=== PATIENT | female | born 1960 | race Caucasian/White ===

== ENCOUNTER 2017-12-09 15:20 | Emergency (ER) | payer MEDICARE, MEDICAID, SELFPAY ==
[2017-12-09 15:21] VITALS: BP 144/95; PULSE 75; RESP 14; TEMP 36.8; O2SAT 97; BMI 39.9
--- NOTE | 2017-12-09 15:44 | EKG12_ITS ---
Test Reason : HYPERTENSION Blood Pressure : / mmHG Vent. Rate : 069 BPM Atrial Rate : 069 BPM P-R Int : 152 ms QRS Dur : 082 ms QT Int : 418 ms P-R-T Axes : 038 -02 019 degrees QTc Int : 447 ms Poor data quality, interpretation may be adversely affected Normal sinus rhythm Normal ECG Confirmed by BARBIE YBARRA, PRICILLA ([id number]), acquisition editor MARK BRANHAM ([id number] on 12/11/2017 1:01:24 PM Referred By: MUKESH Confirmed By:PRICILLA VALENTIN MD
[2017-12-09 16:25] LABS: Anion Gap 7 (5-15); BUN 12 mg/dL (7-18); BUN/Creat Ratio 15.2 RATIO (10-20); Calcium,Total 8.9 mg/dL (8.5-10.1); Chloride 106 mmol/L (98-107); Creatinine, Serum 0.79 mg/dL (0.55-1.02); EST Glomerular Filtration Rate 80 mL/min (>60); Est Glom Filt Rate - Afr Amer 97 mL/min (>60); Estimated Creatinine Clearance 60.72 ml/min; Glucose 78 mg/dL (74-106); Potassium 3.9 mmol/L (3.5-5.1); Sodium Level 139 mmol/L (136-145)
[2017-12-09 16:35] VITALS: BP 156/105; PULSE 71; RESP 16
--- NOTE | 2017-12-09 16:44 | ED.VISSUMM ---
- ER Visit Summary Date of Service: 12/09/17 Chief Complaint: [Hypertension] History of Present Illness: The patient is a 57 F [the emergency department with elevated blood pressure. She states him is been going on for the last [address] Kaiser 2 months ago and it was elevated she has been doing diet modification however she states he continues to run high. She has had intermittent headaches. No vision changes no numbness no weakness no dizziness. No chest pain no shortness of breath. She has been urinating normally. She went to the counseling center appointment today and her blood pressure was 177/111 and they referred her to the emergency department. She has had blood pressure intermittently over the last 4 years but is never taken any medication for it] Physical Examination: [] Blood pressure 144/95 WN WD NAD obese PERRL EOMI MMM NECK supple and nontender, no masses RRR no murmur rub or gallop, no peripheral edema, symmetric radial pulses CTAB no respiratory distress ABDOMEN is soft and nontender, normal bowel sounds, no distension, no rebound or guarding SKIN is warm and dry no rashes Alert and Oriented x3, CN II-XII in tact, no motor or sensory deficits, gait normal No lymphadenopathy Test Results: [] Emergency Department Course and Treatment: [EKG was unremarkable. BMP was normal. Repeat blood pressure is 156/105. Patient will be started on lisinopril. She was given precautions for which to return and will follow up with Dr. Kaiser in the next week.] Treatment Plan: [] Disposition: [Discharge] Impression: [Asymptomatic hypertension] This note was generated with [employer] dictation software. It may contain incorrect words, spelling, and punctuation that were not noted in review of the chart prior to signing ED Disposition - Plan for ED Patient: Chief Complaint: Hypertension Referrals: Jennifer Kaiser MD [Primary Care Provider] -
--- NOTE | 2017-12-09 16:46 | ED.DEP ---
ED Disposition - Plan for ED Patient: Chief Complaint: Hypertension Instructions: ED Hypertension New Begin Tx Prescriptions: Lisinopril [Zestril] 10 mg PO DAILY #14 tablet Referrals: Jennifer Kaiser MD [Primary Care Provider] - 5-7 Days
[2017-12-09] MEDS: Lisinopril 10 MG Tablet PO (16:59)
[2017-12-09 17:00] VITALS: PULSE 72; RESP 14
== END 2017-12-09 17:01 | disposition home or self-care (01) ==
LOC: ED 15:54
PROVIDERS: Emergency Provider Emergency Medicine; Family Provider Internal Medicine; PCP Internal Medicine
DX: I10 Essential (primary) hypertension (principal); F41.9 Anxiety disorder, unspecified; E66.9 Obesity, unspecified; Z68.39 Body mass index [BMI] 39.0-39.9, adult; Z72.0 Tobacco use; Z79.899 Other long term (current) drug therapy
CPT/HCPCS: 36415; 80048; 93005; 99283

== ENCOUNTER → 2018-01-07 12:36 | Outpatient (CLI) | payer MEDICARE, MEDICAID, SELFPAY ==
--- NOTE | 2018-01-07 12:40 | RAD_ITS ---
STUDY: X-RAY - LUMBAR SPINE REASON FOR EXAM: Female, 57 years old. Back and leg pain TECHNIQUE: 4 view(s) of the lumbar spine were obtained. COMPARISON: None FINDINGS: Normal lumbar lordosis. There is no substantial scoliosis. There is a normal alignment of the vertebrae. There is multilevel endplate spondylosis of the lumbar vertebrae. There is multi-level degenerative disc disease with multi-level disc space narrowing. There are multiple metallic clips in the right upper quadrant. This is consistent for a cholecystectomy. There is bilateral facet arthropathy. The soft tissue structures are unremarkable. RAD/L/S Spine Min 4 Views IMPRESSION: Degenerative changes of the spine, as detailed above. Electronically Signed: Darin Guerra MD at 16:53 EDT , Service support ,
== END ==
PROVIDERS: Family Provider Internal Medicine; PCP Internal Medicine; Visit Provider Anesthesiology Pain Medicine
DX: M46.96 Unspecified inflammatory spondylopathy, lumbar region (principal); M47.896 Other spondylosis, lumbar region; M51.36 Other intervertebral disc degeneration, lumbar region; M48.061 Spinal stenosis, lumbar region without neurogenic claudication
CPT/HCPCS: 72110

== ENCOUNTER 2018-10-20 07:24 | Emergency (ER) | payer MEDICARE, MEDICAID, SELFPAY ==
[2018-10-20 07:25] VITALS: BP 172/109; PULSE 83; RESP 16; TEMP 36.8; O2SAT 99; BMI 37.6
--- NOTE | 2018-10-20 07:45 | ED.DCSUM_ITS ---
- ER Visit Summary Date of Service: 10/20/18 Chief Complaint: [Bugs on skin] History of Present Illness: The patient is a 58 F [presents to the emergency department stating that she feels like there are bugs crawling all over her. Patient states that she is felt this way for about 2 months. Patient had 3 exterminators to her house and nobody can see any other bugs. Patient lives with a roommate who states that he does not see any bugs. Patient feels very itchy and she feels like there in her eyeballs and her tear ducts as well as in her nose. Patient states that she does smoke marijuana occasionally but since it has not been available to her she is been snorting meth. Patient denies any other auditory or visual hallucinations. Patient has a history of anxiety and depression but denies feeling suicidal. Patient last used methamphetamines yesterday. Patient states she also had one beer yesterday. She denies any other illicit drugs.] Physical Examination: [HEENT-PERRLA, EOMI. Cranial nerves II through XII grossly intact. TMs clear. Mucous membranes moist. No adenopathy. Patient has dry scalp with skin flakes noted throughout her hair however there are no bugs or lice noted. No scleral icterus. Cardiovascular-regular rate and rhythm without murmur or ectopy Lungs-clear to auscultation, chest wall stable without crepitus or subcu emphysema Abdomen-normoactive bowel sounds, soft, nontender, no rebound or rigidity, no peritoneal signs. Skin exam-no rashes noted. Patient has occasional excoriated areas on her upper extremities from scratching. Extremities-intact ?4, normal range of motion, normal pulses, atraumatic] Test Results: [None indicated] Emergency Department Course and Treatment: [Patient was given Atarax 10 mg p.o.] Treatment Plan: [She will be given a prescription for Atarax and advised to discontinue the methamphetamines as this may be leading to her sensation of bugs on her skin.] Disposition: [Discharged home in stable condition] Impression: [Pruritus] This note was generated with [employer] dictation software. It may contain incorrect words, spelling, and punctuation that were not noted in review of the chart prior to signing ED Disposition - Plan for ED Patient: Chief Complaint: Substance Abuse Referrals: Jennifer Kaiser MD [Primary Care Provider] -
--- NOTE | 2018-10-20 07:45 | ED.DEP ---
ED Disposition - Plan for ED Patient: Chief Complaint: Substance Abuse Instructions: ED Drug Abuse General Prescriptions: hydrOXYzine tablet [Atarax tablet] 10 mg PO 4X/DAY PRN PRN #30 tab PRN Reason: Itching Referrals: Jennifer Kaiser MD [Primary Care Provider] - 3-5 Days
[2018-10-20] MEDS: hydrOXYzine 10 MG Tablet PO (07:53)
== END 2018-10-20 08:15 | disposition home or self-care (01) ==
PROVIDERS: Emergency Provider Emergency Medicine; Family Provider Internal Medicine; PCP Internal Medicine
DX: L29.9 Pruritus, unspecified (principal); I10 Essential (primary) hypertension; F32.9 Major depressive disorder, single episode, unspecified; F41.9 Anxiety disorder, unspecified; F12.90 Cannabis use, unspecified, uncomplicated; F15.90 Other stimulant use, unspecified, uncomplicated; Z79.899 Other long term (current) drug therapy
CPT/HCPCS: 99284

== ENCOUNTER 2019-08-04 13:58 | Inpatient (IN) | payer MEDICARE, SELFPAY ==
[2019-08-04 13:59] VITALS: BP 138/112; PULSE 85; RESP 22; TEMP 35.8; O2SAT 97; BMI 38.0
--- NOTE | 2019-08-04 14:58 | EKG12_ITS ---
Test Reason : ABNL PAIN Blood Pressure : / mmHG Vent. Rate : 075 BPM Atrial Rate : 075 BPM P-R Int : 000 ms QRS Dur : 070 ms QT Int : 410 ms P-R-T Axes : 000 048 -01 degrees QTc Int : 457 ms Normal sinus rhythm Nonspecific ST and T wave abnormality Abnormal ECG Confirmed by JOAN YBARRA, YOGI ([id number]), clinical editor ALEKSANDAR MCGEE ([id number]) on 08/11/2019 9:30:06 A M Referred By: Shanelle Parr Confirmed By:GRICELDA FRANCO MD
--- NOTE | 2019-08-04 14:59 | CT_ITS ---
We are attempting to reach an attending provider to discuss findings. An addendum with communication details will be sent when the communication is complete. STUDY: CT ABDOMEN CHEST, AND PELVIS WITH CONTRAST REASON FOR EXAM: Female, 59 years old. Nausea, vomiting, diarrhea and pain. History of ovarian and cervical cancer. TECHNIQUE: Transaxial images were obtained from the dome of the above the clavicles to the symphysis pubis without oral contrast. IV/Oral Isovue 300 100ml was administered. Sagittal and coronal images were reconstructed. Individualized dose optimization techniques were used for this CT. COMPARISON: Chest radiograph same date. FINDINGS: CHEST: Heart and great vessels: Heart size normal. No dissection or aneurysm of the thoracic aorta. No pulmonary embolus. Lungs, pleura: No pneumonia, edema, or acute abnormality in the lungs. No pleural effusion. No pneumothorax. Mediastinum: No adenopathy or mass or hematoma. Moderate to large sliding type hiatal hernia contains the gastric fundus and a portion of the gastric body. Osseous: No fracture or acute osseous abnormality. Chest wall: No concerning findings. Abdomen/pelvis: Bowel: Progressive dilation of small bowel loops and dilution of enteric contrast. Ileal loops become dilated with fluid. Abrupt transition to decompressed ileum in the mid lower abdomen. The obstructed loop focally dilates just prior to the transition point, and contains fluid and 5 oval increased density structures measuring 3 cm in greatest dimension. At and just distal to the transition point, the ileum is moderately thick-walled, with no definite focal mass identified. The remainder of the ileum, and the large bowel, are decompressed. Sigmoid colon diverticulosis, no diverticulitis. Normal appendix. Liver: No concerning lesions. Gallbladder and biliary tree: Status post cholecystectomy. No biliary ductal dilation. Pancreas: No pancreatic lesions or inflammation. Spleen: Normal size, no splenic lesions. Adrenal glands: No concerning masses. Kidneys and ureters: No hydronephrosis or renal stones. No concerning masses. No ureteral dilation. Urinary bladder: No stones or wall thickening. Reproductive: Status post hysterectomy and oophorectomy. Vascular: No abdominal aortic aneurysm. Retroperitoneal and peritoneal spaces: Trace fluid in the mesentery adjacent to the obstructed ileal loop's. No free air. No other free fluid. Osseous: No acute osseous abnormality. Prominent facet degeneration L4-5 and L5-S1. Abdominal and pelvic wall: No concerning findings. CT/Abdomen/Pelvis WITH Contrast IMPRESSION: Small bowel obstruction. Abrupt transition in the mid lower abdomen suggests adhesion as the etiology. At and just distal to the transition point the bowel is mildly thick walled; most likely representing reactive edema with mass or other etiology less likely but possible. A cluster of increased density structures within the most distal dilated obstructed loop probably representing nondigested pills/medication. Please correlate with history. No acute findings in the chest. Moderate to large hiatal hernia incidentally noted. Electronically Signed: Be Gutierrez, at 17:31 EDT Tel , Service support ,
--- NOTE | 2019-08-04 15:00 | RAD_ITS ---
EXAM DESCRIPTION: PORTABLE AP CHEST CLINICAL HISTORY: 59 years Female, cough, nausea and vomiting COMPARISON: None FINDINGS: The thorax is intact. The heart and mediastinum appear to be within normal limits. The right lung is normal. A cavitary appearing type lesion is seen in the left medial lung base posterior to the heart of uncertain etiology. Its uncertain whether this represents a cavitary neoplasm, cavitary pneumonia, or heart valve calcifications or pleural-based calcifications. A CT scan of the chest with and without IV contrast is recommended for additional evaluation. The left lung is normal RAD/Chest 1 View (Portable) IMPRESSION: Cavitary-appearing type lesions seen in the left lung base of uncertain etiology. Cavitary neoplasm versus pneumonia versus heart valve calcification and adjacent arthritic change throughout the its appearance and a CT scan of the chest with and without IV contrast would be helpful for further evaluation. Electronically Signed: Hernando Garcia, at 15:27 EDT Tel , Service support ,
--- NOTE | 2019-08-04 15:03 | ED.VISSUMM ---
- ER Visit Summary Date of Service: 08/04/19 Chief Complaint: Vomiting History of Present Illness: The patient is a 59 F presenting with vomiting and diarrhea. She states this started 4 days ago. She states she has vomited several times today. She denies blood in her stool or emesis. She complains of diffuse abdominal cramping. She also states she has a mild cough. Denies chest pain. She states that she uses marijuana, denies other drug use. Physical Examination: Vitals are stable. Patient is afebrile. Alert no acute distress. HEENT exam is unremarkable. Neck is supple. Lungs are clear and equal bilaterally. Heart is regular rate and rhythm. Abdomen is soft diffuse tenderness with no guarding or rebound Extremities are unremarkable. Skin is warm and dry. No focal neurologic deficit. Remainder of exam is unremarkable. Emergency Department Course and Treatment: Patient was given IV fluids, Phenergan, Toradol. CBC, chemistries unremarkable. Liver lipase are normal. Troponin is negative. Chest x-ray shows cavitary-appearing type lesions seen in the left lung base of uncertain etiology. Cavitary neoplasm versus pneumonia versus heart valve calcification and adjacent arthritic change throughout the its appearance. CT chest abdomen pelvis shows small bowel obstruction. Abrupt transition in the mid lower abdomen suggests adhesion as the etiology. At and just distal to the transition point the bowel is mildly thick walled; most likely representing reactive edema with mass or other etiology less likely but possible. A cluster of increased density structures within the most distal dilated obstructed loop probably representing nondigested pills/medication. Please correlate with history. No acute findings in the chest. Moderate to large hiatal hernia incidentally noted. NG tube was ordered. Discussed with Dr. Tijerina and Dr. Parr. Patient will be admitted. Disposition: Admission Impression: Small bowel obstruction This note was generated with [employer] dictation software. It may contain incorrect words, spelling, and punctuation that were not noted in review of the chart prior to signing ED Disposition - Plan for ED Patient: Referrals: Jennifer Kaiser MD [Primary Care Provider] -
[2019-08-04] MEDS: 0.9% Normal Saline 1,000 ML 1000 ML IV (15:14)
[2019-08-04] MEDS: proMETHazine 25 MG/ML Syringe 6.25 MG IV (15:22)
[2019-08-04 15:30] LABS: Absolute Lymphocyte Count 1.46 X10^3/uL (0.83-4.51); Absolute Neutrophil Count 8.9 X10^3/uL (2.0-7.7); Basophil# 0.03 X10^3/uL; Basophil% 0.3 % (0-1); Eosinophil# 0.01 X10^3/uL; Eosinophils% 0.1 % (0-5); Hematocrit 44.9 % (37-47); Hemoglobin 15.1 g/dL (12.0-15.0); Lymphocyte # 1.46 X10^3/ul (4.0); Lymphocyte % 13.2 % (19-41); Mean Corp Hgb Conc 33.6 g/dL (32-36); Mean Corpuscular Volume 92.2 fL (81-99); Mean Platelet Vol. 8.2 fl (6.2-12.0); Monocyte# 0.58 X10^3/uL; Monocyte% 5.3 % (0-10); NRBC Flagged by Analyzer 0 % (0-5); Neutrophil # 8.86 X10^3/uL (2.7-7.7); Neutrophil % 80.3 % (47-70); Platelet Count 384 K/mm3 (150-450); RBC Distribution Width CV 11.9 % (11.6-14.6); RBC Distribution Width SD 40.7 fl (35.1-43.9); Red Blood Count 4.87 M/mm3 (4.2-5.4)
--- NOTE | 2019-08-04 15:30 | CT_ITS ---
STUDY: CT ABDOMEN CHEST, AND PELVIS WITH CONTRAST REASON FOR EXAM: Female, 59 years old. Nausea, vomiting, diarrhea and pain. History of ovarian and cervical cancer. TECHNIQUE: Transaxial images were obtained from the dome of the above the clavicles to the symphysis pubis without oral contrast. IV/Oral Isovue 300 100ml was administered. Sagittal and coronal images were reconstructed. Individualized dose optimization techniques were used for this CT. COMPARISON: Chest radiograph same date. FINDINGS: CHEST: Heart and great vessels: Heart size normal. No dissection or aneurysm of the thoracic aorta. No pulmonary embolus. Lungs, pleura: No pneumonia, edema, or acute abnormality in the lungs. No pleural effusion. No pneumothorax. Mediastinum: No adenopathy or mass or hematoma. Moderate to large sliding type hiatal hernia contains the gastric fundus and a portion of the gastric body. Osseous: No fracture or acute osseous abnormality. Chest wall: No concerning findings. Abdomen/pelvis: Bowel: Progressive dilation of small bowel loops and dilution of enteric contrast. Ileal loops become dilated with fluid. Abrupt transition to decompressed ileum in the mid lower abdomen. The obstructed loop focally dilates just prior to the transition point, and contains fluid and 5 oval increased density structures measuring 3 cm in greatest dimension. At and just distal to the transition point, the ileum is moderately thick-walled, with no definite focal mass identified. The remainder of the ileum, and the large bowel, are decompressed. Sigmoid colon diverticulosis, no diverticulitis. Normal appendix. Liver: No concerning lesions. Gallbladder and biliary tree: Status post cholecystectomy. No biliary ductal dilation. Pancreas: No pancreatic lesions or inflammation. Spleen: Normal size, no splenic lesions. Adrenal glands: No concerning masses. Kidneys and ureters: No hydronephrosis or renal stones. No concerning masses. No ureteral dilation. Urinary bladder: No stones or wall thickening. Reproductive: Status post hysterectomy and oophorectomy. Vascular: No abdominal aortic aneurysm. Retroperitoneal and peritoneal spaces: Trace fluid in the mesentery adjacent to the obstructed ileal loop's. No free air. No other free fluid. Osseous: No acute osseous abnormality. Prominent facet degeneration L4-5 and L5-S1. Abdominal and pelvic wall: No concerning findings. CT/Chest WITH Contrast IMPRESSION: Small bowel obstruction. Abrupt transition in the mid lower abdomen suggests adhesion as the etiology. At and just distal to the transition point the bowel is mildly thick walled; most likely representing reactive edema with mass or other etiology less likely but possible. A cluster of increased density structures within the most distal dilated obstructed loop probably representing nondigested pills/medication. Please correlate with history. No acute findings in the chest. Moderate to large hiatal hernia incidentally noted. Electronically Signed: Be Gutierrez, at 17:29 EDT Tel , Service support ,
[2019-08-04] MEDS: Ketorolac 30 MG/ML Syringe IV ×2 (15:37→22:44)
[2019-08-04 15:45] LABS: ALB/GLOB Ratio 0.6 RATIO (0.9-2.4); AST(SGOT) 41 U/L (15-37); Alanine Aminotransfer ALT/SGPT 54 U/L (13-56); Alkaline Phosphatase 86 U/L (45-117); Anion Gap 10 (5-15); BUN 15 mg/dL (7-18); BUN/Creat Ratio 14.9 RATIO (10-20); Calcium,Total 8.8 mg/dL (8.5-10.1); Chloride 105 mmol/L (98-107); Creatinine, Serum 1.01 mg/dL (0.55-1.02); EST Glomerular Filtration Rate 60 mL/min (>60); Est Glom Filt Rate - Afr Amer 73 mL/min (>60); Estimated Creatinine Clearance 44.14 ml/min; Globulin 5.2 g/dL (2.2-4.2); Glucose 114 mg/dL (74-106); Lipase 50 U/L (73-393); Potassium 3.9 mmol/L (3.5-5.1); Protein, Total 8.2 g/dL (6.4-8.2); Sodium Level 140 mmol/L (136-145)
[2019-08-04 15:59] VITALS: BP 125/81; PULSE 67; RESP 15; O2SAT 95
[2019-08-04 16:08] LABS: Bacteria 0 SEEN /hpf (None Seen); Red Blood Cells-Urine 0 SEEN /hpf (0-5); Squamous Epithelial Cells - UA 0 SEEN /hpf (5-10)
[2019-08-04 16:23] LABS: Color, Urine Yellow (Yellow); Glucose, Dipstick Normal (Normal); Ketone-Dipstick 15 mg/dl (Negative); Leukocyte Esterase-Dipstick 25 /ul (Negative); Nitrite-Dipstick Negative (Negative); Occult Blood-Urine 10 /ul (Negative); Protein-Dipstick 30 mg/dl (Negative); Urine Clarity Sl. Cloudy (Clear); Urine Urobilinogen 8 mg/dl (Normal)
[2019-08-04 16:39] LABS: Urine Bilirubin Dipstick 1 mg/dL (Negative)
[2019-08-04 16:40] LABS: Coarse Granular Cast 0-5 SEEN /lpf (0-5 /lpf); Hyaline Cast 5-10 SEEN /lpf (0-5); Mucous, Urine 4+ /hpf (<or=2+); White Blood Cells 0-5 SEEN /hpf (0-5)
[2019-08-04 17:14] VITALS: BP 120/86; PULSE 68; RESP 18; O2SAT 96
[2019-08-04 18:16] VITALS: PULSE 73; RESP 18; O2SAT 95
--- NOTE | 2019-08-04 18:24 | CON.PCM_ITS ---
- Consult Date of Consult: 08/04/19 - Reason for Consult Chief Complaint: abdominal pain History of Present Illness: Beth Gudino is a 59 y/o WF who presents with signs/symptoms of small bowel obstruction. No previous history of bowel obstruction. Has had vaginal hysterectomy, cholecystectoy in past States that she has had 4-5 day history of abdominal pain, states that she hasn't passed flatus for this time period. Had small bowel movement this morning. Has also had nausea with emesis, numerous episodes today. Denies fevers/chills. States that pain is severe, sharp and diffuse - all throughout abdomen - states that pain is 10 out of 10 on scale of 1-10. Patient with history of illicit drug abuse - she states that she last used meth about 2 weeks ago. Evaluation in ED - patient with normal WBC but with left shift of differential, vital signs are stable with normal temperature. CT scan was obtained with findings of bowel obstruction, transition point in distal ileum in pelvis, probably due to adhesions. Past Medical History: Hypertension Chronic pain syndrome COPD Anxiety/depression disorder, panic disorder with agoraphobia, PTSD history of cervical cancer restless leg syndrome history of heroin use history of meth use ? Past Surgical History: Hysterectomy - vaginal Back injections Left shoulder knot removed as child Cholecystectomy Dental surgery - removal of teeth ? MEDICATIONS: lisinopril (ZESTRIL, PRINIVIL) 10 mg tablet meloxicam (MOBIC) 15 mg tablet gabapentin (NEURONTIN) 600 mg tablet?() cyclobenzaprine (FLEXERIL) 10 mg tablet busPIRone (BUSPAR) 10 mg tablet DULoxetine (CYMBALTA) 60 mg capsule triamcinolone acetonide (KENALOG) 0.1 % cream ketoconazole (NIZORAL) 2 % cream loratadine (CLARITIN) 10 mg tablet albuterol HFA (PROAIR HFA) 90 mcg/actuation inhaler hydrOXYzine HCl (ATARAX) 25 mg tablet ? ALLERGIES: No known drug allergies ? REVIEW OF SYSTEMS: General - denies fevers/chills, complains of increased fatigue Cardiovascular ? denies chest pain Pulmonary ? denies shortness of breath, denies coughing up blood Gastrointestinal ? as per HPI, colonoscopy in February of this year - diverticulosis and hemorrhoidal disease Neurological ? has headaches, denies seizures Genitourinary ? denies blood in urine, denies burning with urination Hematological ? denies spontaneous/prolonged bleeding Skin ? denies nonhealing skin wounds Musculoskeletal ? has chronic back pain, spinal stenosis L4-5 MRI ma an 2011 Endocrine ? denies diabetes, denies thyroid disease Psychological ? has depression, has panic anxiety, PTSD ? PHYSICAL EXAMINATION: Temp 97F BP 120/86 RR 16 HR 72 Wt: 191# Ht: 5'1 General ? WD/WN WF with abdominal pain but not in extremis - appears to be lying on gurney without writhing, alert and oriented Head ? Normocephalic. EOM intact with sclera clear. Mouth with mucus membranes moist. Neck - supple with no jugular venous distention noted. Trachea is midline. Lungs ? clear to auscultation. Normal breath sounds. No rales/rhonchi/wheezing noted. Heart ? normal heart sounds, regular. No rubs/clicks/murmurs noted. Abdomen ? soft, but with generalized tenderness, but no peritoneal signs, no b owel sounds noted. Obese - cannot determine if any masses or distension. Extremities ? no calf tenderness noted. No pitting edema noted. Skin ? Normal skin integrity. Neurological ? non focal Psych ? calm and appropriate IMPRESSION: small bowel obstruction DISCUSSION/PLAN: I have discussed the above with the patient. Admit to hospital - on hospitalist service. IV hydration overnight. Will repeat KUB in the am to determine if any contrast in colon. Keep NPO NG tube to low intermittent suction - to keep proximal bowel decompressed. If no improvement - may have to proceed to surgery for adhesiolysis.
--- NOTE | 2019-08-04 18:30 | HP.PCM_ITS ---
Problem List (1) Small bowel obstruction Status: Acute (2) Methamphetamine abuse Status: Chronic (3) Heroin abuse Status: Chronic (4) Marijuana abuse Status: Chronic (5) Anxiety Status: Chronic (6) HTN (hypertension) Status: Chronic (7) Cervical cancer Status: Resolved (8) Ovarian cancer Status: Resolved (9) Restless leg syndrome Status: Chronic History of Present Illness Date of Admission: 08/04/19 Chief Complaint: abdominal pain The patient is a 59 year old F with pmhx of ovaranc and cervical cancer in remission s/p partial hysterectomy, also with hx of polysubstance abuse (meth, heroin, marijuana) last used meth 1.5 weeks ago states she no longer uses opiates, hx HTN, RLS< anxiety, who presents to the ER with c/o abdominal pain. This is diffuse severe pain that has worsened over the past 4-5 days. She initially had several episodes of watery stools nonbloody or melanotic. Today she had worse pain and began having nausea and vomiting. She came to the ER and was found to have a small bowel obstruction on CT abdomen along with a moderate to large hiatal hernia. She denies a prior hx of bowel obstruction. She has no fever/chills. Dr. Tijerina has agreed to see the patient in consultation. [] Past Medical History Past Medical History (Chronic Problems): Chronic Problems Methamphetamine abuse (Chronic) Heroin abuse (Chronic) Marijuana abuse (Chronic) Anxiety (Chronic) HTN (hypertension) (Chronic) Restless leg syndrome (Chronic) Allergies No Known Allergies Allergy (Verified 08/04/19 13:59) Home Medications: Ambulatory Orders Medication Instructions Recorded Duloxetine HCl 60 mg PO DAILY 12/09/17 Gabapentin [Neurontin] 1,200 mg PO BIDCM 12/09/17 Gabapentin [Neurontin] 600 mg PO LUNCH 12/09/17 Lisinopril [Zestril] 10 mg PO DAILY #14 tablet 12/09/17 Loratadine 10 mg PO DAILY 12/09/17 Meloxicam 15 mg PO DAILY 12/09/17 busPIRone [Buspar] 10 mg PO TID 12/09/17 cycloBENZAPRine HCl [Flexeril] 10 mg PO BID PRN 12/09/17 hydrOXYzine tablet [Atarax tablet] 10 mg PO 4X/DAY PRN PRN #30 tab 10/20/18 Surgical History: cholecystectomy, hysterectomy Psychiatric History: Anxiety [employer] History: cervical cancer, ovarian cancer Lives: Alone Smoking Status: Former smoker Tobacco Use: Non-smoker Alcohol: None Drugs: Heroin, Marijuana, - - meth - *Family History Maternal History Items: No pertinent history Paternal History Items: No pertinent history Review of Systems Constitutional: Denies: Chills, Fever, Weight Change HEENT: Denies: Head Aches, Sinus Congestion, Sinus Drainage Cardiovascular: Denies: Chest Pain, Chest Pressure, Edema, Heaviness, Light Headedness, Palpitations Respiratory: Denies: Cough, Shortness of Breath, Shortness of breath at rest, Sputum production Gastrointestinal: Reports: Abdominal Pain, Diarrhea, Nausea, Vomiting. Denies: Hematemesis, Hematochezia, Melena Genitourinary: Denies: Dysuria, Retention, Urgency Musculoskeletal: Denies: Joint Pain, Joint Tenderness Skin: Denies: Lesions, Rash, Wounds Neurological: Denies: Numbness, Tingling, Focal weakness Psychiatric: Denies: Anxiety, Depression, Homicidal Ideations, Suicidal Ideations Hematologic/ Lymphatic: Denies: Easy Bruising, Easy Bleeding VTE Information - Inpt Only VTE Present on Admission: No VTE Mechan Device Prophylaxis: None VTE Pharm Prophylaxis ordered?: Yes Patient Problems: Active and Suspected Problems Small bowel obstruction (Acute) - Physical Exam General: Alert, Oriented x3, Cooperative HEENT: Atraumatic, PERRLA, EOMI, Normocephalic Neck: Supple, No JVD, Negative Carotid Bruits Lungs: Clear to auscultation, Normal air movement Cardiovascular: Regular rate, No murmurs Abdomen: Bowel Sounds Present, Soft, Non Tender, - - diffusely tender with no guarding, or rigidity Extremities: No edema, Capillary Refill Less than 3 Seconds Skin: No rashes, No breakdown Musculoskeletal: No Tenderness to Palpation of Joints or Extremities Neurological: Cranial nerves II-XII grossly intact Psych/Mental Status: Normal Affect, Appropriate, Alert and oriented to time, place, person, mood and affect Vital Signs Temp Pulse Resp BP Pulse Ox 96.4 F L 73 18 120/86 H 95 08/04/19 13:59 08/04/19 18:16 08/04/19 18:16 08/04/19 17:14 08/04/19 18:16 Oxygen Delivery Method Room Air Weight: 194 lb 14.218 oz Body Mass Index (BMI) 38.0 Intake and Output for Last 24 Hours 08/02/19 08/03/19 08/04/19 23:59 23:59 23:59 Intake Total 1000 / 1000 Balance 1000 / 1000 Laboratory Tests Past 24 Hrs 08/04/19 08/04/19 08/04/19 15:18 15:18 16:00 WBC 11.0 RBC 4.87 Hgb 15.1 H Hct 44.9 MCV 92.2 MCH 31.0 MCHC 33.6 RDW Std Deviation 40.7 RDW Coeff of Romeo 11.9 Plt Count 384 MPV 8.2 Immature Gran % (Auto) 0.800 Neut % (Auto) 80.3 H Lymph % (Auto) 13.2 L [place] % (Auto) 5.3 Eos % (Auto) 0.1 Baso % (Auto) 0.3 Absolute Neuts (auto) 8.9 H Absolute Lymphs (auto) 1.46 Nucleated RBC % 0 Sodium 140 Potassium 3.9 Chloride 105 Carbon Dioxide 25.0 Anion Gap 10 BUN 15 Creatinine 1.01 Estim Creat Clear Calc 44.14 Est GFR (MDRD) Af Amer 73 Est GFR (MDRD) Non-Af 60 BUN/Creatinine Ratio 14.9 Glucose 114 H Lactic Acid Calcium 8.8 Total Bilirubin 0.90 AST 41 H ALT 54 Alkaline Phosphatase 86 Troponin I < 0.015 Total Protein 8.2 Albumin 3.0 L Globulin 5.2 H Albumin/Globulin Ratio 0.6 L Lipase 50 L Urine Color Yellow Urine Clarity Sl. Cloudy Urine pH 6.0 Ur Specific [place] 1.020 Urine Protein 30 H Urine Glucose (UA) Normal Urine Ketones 15 H Urine Occult Blood 10 H Urine Nitrite Negative Urine Bilirubin 1 H Urine Urobilinogen 8 H Ur Leukocyte Esterase 25 H Urine RBC 0 SEEN Urine WBC 0-5 SEEN Ur Squamous Epith Cells 0 SEEN Urine Bacteria 0 SEEN Hyaline Casts 5-10 SEEN Coarse Granular Casts 0-5 SEEN Urine Mucus 4+ 08/04/19 18:02 WBC RBC Hgb Hct MCV MCH MCHC RDW Std Deviation RDW Coeff of Romeo Plt Count MPV Immature Gran % (Auto) Neut % (Auto) Lymph % (Auto) [place] % (Auto) Eos % (Auto) Baso % (Auto) Absolute Neuts (auto) Absolute Lymphs (auto) Nucleated RBC % Sodium Potassium Chloride Carbon Dioxide Anion Gap BUN Creatinine Estim Creat Clear Calc Est GFR (MDRD) Af Amer Est GFR (MDRD) Non-Af BUN/Creatinine Ratio Glucose Lactic Acid Pending Calcium Total Bilirubin AST ALT Alkaline Phosphatase Troponin I Total Protein Albumin Globulin Albumin/Globulin Ratio Lipase Urine Color Urine Clarity Urine pH Ur Specific [place] Urine Protein Urine Glucose (UA) Urine Ketones Urine Occult Blood Urine Nitrite Urine Bilirubin Urine Urobilinogen Ur Leukocyte Esterase Urine RBC Urine WBC Ur Squamous Epith Cells Urine Bacteria Hyaline Casts Coarse Granular Casts Urine Mucus Assessment/Plan All Active Problems Small bowel obstruction (Acute) Cervical cancer (Resolved) Ovarian cancer (Resolved) 1. Acute SBO- Dr. Tijerina consulted. Prior abdominal surgeries. NG tube to be placed in ER. NPO. IV Pepcid. IV fluids, supportive care. Lipase negative. Trop and lactate neg. Mild AST elevation. Questionable cavitary lesion on XR ruled out - it was the hiatal hernia per the radiologist addendum. 2. Hx ovarian and cervical cancer in remission s/p partial hysto 3. Polysubstance abuse - states she no longer uses heroin, did use meth 1.5 weeks ago and also smokes marijuana 4. Anxiety - prn ativan 5. HTN - orals held. prn hydralazine 6. Hiatal hernia - mod-sev seen on CT. F/u Gen surgery. DVT ppx: SCDs This patient was seen by [place] PA-C under the supervision of Dr. Parr.
[2019-08-04 18:36] LABS: Lactic Acid 1.1 mmol/L (0.4-2.0)
--- NOTE | 2019-08-04 18:36 | RAD_ITS ---
STUDY: X-RAY - ABDOMEN/PELVIS REASON FOR EXAM: Female, 59 years old. Enteric tube. TECHNIQUE: Upright abdominal radiograph. COMPARISON: CT abdomen pelvis earlier same date. FINDINGS: Enteric tube tip in the distal stomach directed to the right and inferiorly in the right mid abdomen. No apparent free air. Small bowel obstruction with dilated small bowel loops and large hiatal hernia again demonstrated. Excreted IV contrast is seen within nondilated renal collecting systems from the recent CT. RAD/Abdomen Single View (Portable) IMPRESSION: Enteric tube tip in the distal stomach directed to the right and inferiorly in the right mid abdomen. Electronically Signed: Be Gutierrez, at 19:01 EDT Tel , Service support ,
[2019-08-04] MEDS: Lidocaine 4% 5 ML Ampul 2 ML INHALATION (18:37)
[2019-08-04 18:51] VITALS: BP 141/91; PULSE 77; RESP 16; O2SAT 95
[2019-08-04 19:13] VITALS: BP 137/94; PULSE 72; RESP 18; TEMP 36.6; O2SAT 97
[2019-08-04 19:14] VITALS: BMI 37.1
[2019-08-04 19:32] VITALS: BMI 37.1
[2019-08-04 20:25] LABS: Amphetamine Urine VISTA NEGATIVE (<1000 ng/mL); Barbiturate Urine VISTA NEGATIVE (< 200 ng/mL); Benzodiazepine Urine VISTA NEGATIVE (< 200 ng/mL); Cocaine Urine VISTA NEGATIVE (< 300 ng/mL); Ecstacy Urine VISTA NEGATIVE (< 500 ng/mL); Methadone Urine VISTA NEGATIVE (< 300 ng/mL); PCP Urine VISTA NEGATIVE (< 25 ng/mL); THC Urine VISTA POSITIVE (< 50 ng/mL); Vista UDS pH Range 6
[2019-08-04] MEDS: 0.9% NaCl Peripheral Flush Adult/Peds IV ×3 (21:03→22:43)
[2019-08-04] MEDS: 0.9% Normal Saline 1,000 ML 999 ML IV (21:03)
[2019-08-04 21:16] LABS: HIV - WCH Non-Reactive (Nonreactive)
[2019-08-04] MEDS: Lactated Ringers 1,000 ML 150 ML IV (22:22)
[2019-08-04] MEDS: Morphine 2 MG/ML Syringe IV (22:28)
[2019-08-05 02:22] VITALS: BP 120/93; PULSE 77; RESP 16; TEMP 36.8; O2SAT 97
[2019-08-05] MEDS: Morphine 2 MG/ML Syringe IV ×2 (02:25→08:32)
[2019-08-05] MEDS: 0.9% NaCl Peripheral Flush Adult/Peds IV ×6 (02:26→13:12)
[2019-08-05] MEDS: Lactated Ringers 1,000 ML 150 ML IV ×2 (04:49→11:03)
[2019-08-05] MEDS: Ketorolac 30 MG/ML Syringe IV ×2 (05:25→13:14)
[2019-08-05] MEDS: Enoxaparin 40 MG/0.4 ML Syringe SC (05:30)
--- NOTE | 2019-08-05 05:55 | RAD_ITS ---
STUDY: X-RAY - ABDOMEN/PELVIS REASON FOR EXAM: Female, 59 years old. Small bowel obstruction TECHNIQUE: Single AP view of the abdomen / pelvis. COMPARISON: 08/04/2019 FINDINGS: Nasogastric tube extends to the antrum of the stomach. Mildly prominent air-filled loops of small bowel throughout the midabdomen, not significant changed in size compared to prior imaging. Minimal gas and contrast noted in the ascending colon. No bowel wall thickening. No free intraperitoneal air. Cholecystectomy clips noted. The visualized liver, spleen and kidneys are grossly normal in size and morphology. No intra-abdominal calcification. Contrast within the urinary bladder. Normal soft tissue structures. Lung bases are clear. Mild multilevel degenerative change of the spine. RAD/Abdomen Single View IMPRESSION: Partial small bowel obstruction, not significant changed compared to prior imaging, with migration of oral contrast into the ascending colon. Electronically Signed: Rayo Singh MD at 3:28 EDT Tel , Service support ,
--- NOTE | 2019-08-05 07:06 | PN_ITS ---
Patient Problems: Active and Suspected Problems Small bowel obstruction (Acute) Subjective: CC follow-up small bowel obstruction Patient is a 59-year-old lady with previous intra-abdominal surgery including cholecystectomy, hysterectomy and oophorectomy who presented with abdominal pain and assessment of small bowel obstruction made admitted to regular nursing floor Objective: GENERAL: cooperative HEENT: Atraumatic; NG-tube in place EYES; Anicteric, Normal Conjunctiva NECK; supple, normal thyroid, . RESPIRATORY: Diminished to auscultation CARDIOVASCULAR: Regular S1 S2, GI: soft, Hypoactive bowel sounds, : No Renal angle tenderness; EXTREMITIES: No edema, no clubbing, MUSCULOSKELETAL: no muscle waisting NEURO: Awake; no lateralizing signs. SKIN: No Rash PSYCH; Normal affect Vitals/I&O's: Vital Signs Temp Pulse Resp BP Pulse Ox 98.3 F 77 16 120/93 H 97 08/05/19 02:22 08/05/19 02:22 08/05/19 02:22 08/05/19 02:22 08/05/19 02:22 Oxygen Delivery Method Room Air Weight: 86.228 kg Body Mass Index (BMI) 37.1 Intake and Output for Last 24 Hours 08/03/19 08/04/19 08/05/19 23:59 23:59 23:59 Intake Total 2260 / 2260 1092.5 / 1092.5 Output Total 350 / 350 200 / 200 Balance 191 / 1909 892.5 / 892.5 Laboratory Results 08/04/19 15:18: WBC 11.0, RBC 4.87, Hgb 15.1 H, Hct 44.9, MCV 92.2, MCH 31.0, MCHC 33.6, RDW Std Deviation 40.7, RDW Coeff of Romeo 11.9, Plt Count 384, MPV 8.2, Immature Gran % (Auto) 0.800, Neut % (Auto) 80.3 H, Lymph % (Auto) 13.2 L, [place] % (Auto) 5.3, Eos % (Auto) 0.1, Baso % (Auto) 0.3, Absolute Neuts (auto) 8.9 H, Absolute Lymphs (auto) 1.46, Nucleated RBC % 0 08/04/19 15:18: Sodium 140, Potassium 3.9, Chloride 105, Carbon Dioxide 25.0, Anion Gap 10, BUN 15, Creatinine 1.01, Estim Creat Clear Calc 44.14, Est GFR (MDRD) Af Amer 73, Est GFR (MDRD) Non-Af 60, BUN/Creatinine Ratio 14.9, Glucose 114 H, Calcium 8.8, Total Bilirubin 0.90, AST 41 H, ALT 54, Alkaline Phosphatase 86, Troponin I < 0.015, Total Protein 8.2, Albumin 3.0 L, Globulin 5.2 H, Albumin/Globulin Ratio 0.6 L, Lipase 50 L 08/04/19 15:18: Hepatitis A IgM Ab Pending, Hepatitis A Ab Total Pending, Hep Bs Antigen Pending, Hep B Core Total Ab Pending, Hep B Core IgM Ab Pending 08/04/19 15:18: HIV 1&2 Antibody Non-Reactive 08/04/19 16:00: Urine Color Yellow, Urine Clarity Sl. Cloudy, Urine pH 6.0, Ur Specific [place] 1.020, Urine Protein 30 H, Urine Glucose (UA) Normal, Urine Ketones 15 H, Urine Occult Blood 10 H, Urine Nitrite Negative, Urine Bilirubin 1 H, Urine Urobilinogen 8 H, Ur Leukocyte Esterase 25 H, Urine RBC 0 SEEN, Urine WBC 0-5 SEEN, Ur Squamous Epith Cells 0 SEEN, Urine Bacteria 0 SEEN, Hyaline Casts 5-10 SEEN, Coarse Granular Casts 0-5 SEEN, Urine Mucus 4+ 08/04/19 16:00: Urine Opiates Screen NEGATIVE, Urine Methadone Screen NEGATIVE, Ur Barbiturates Screen NEGATIVE, Ur Phencyclidine Scrn NEGATIVE, Ur Amphetamines Screen NEGATIVE, U Methamphetamin-MDMA NEGATIVE, U Benzodiazepines Scrn NEGA TIVE, Urine Cocaine Screen NEGATIVE, U Cannabinoids Screen POSITIVE H, Ur Drug Screen Comment 08/04/19 18:02: Lactic Acid 1.1 Current Medications Albuterol Sulfate (Ventolin Aerosols) 2.5 mg INHALATION Q2H PRN PRN PRN Reason: dyspnea, wheezing Dextrose (D50w Syringe) 0 gm IV X1 PRN; Protocol PRN Reason: Hypoglycemia Enoxaparin Sodium (Lovenox) 40 mg SC DAILY@0600 RAKEL Last Admin: 08/05/19 05:30 Dose: 40 mg Documented by: Glucagon () 1 mg IM .X1 PRN PRN Reason: Hypoglycemia Hydralazine HCl (Apresoline Iv) 10 mg IV Q4H PRN PRN PRN Reason: SBP > 160 Hydroxyzine HCl (Vistaril Vial) 25 mg IM Q6H PRN PRN PRN Reason: ANXIETY Sodium Chloride () 250 mls @ 15 mls/hr IV .[id number] PRN PRN Reason: SALINE FLUSH Famotidine 20 mg/ Sodium (Chloride) 10 mls @ 300 mls/hr IV Q12 [facility] Last Infusion: 08/04/19 22:52 Dose: Infused Documented by: Lactated Ringer's () 1,000 mls @ 150 mls/hr IV .[id number] RAKEL Last Admin: 08/05/19 04:49 Dose: 150 mls/hr Documented by: Ketorolac Tromethamine (Toradol) 30 mg IV Q8 RAKEL Stop: 08/05/19 22:01 Last Admin: 08/05/19 05:25 Dose: 30 mg Documented by: Morphine Sulfate () 2 - 4 mg IV Q4H PRN PRN PRN Reason: Pain Score 1-10 Last Admin: 08/05/19 02:25 Dose: 2 mg Documented by: Ondansetron HCl (Zofran) 4 mg IV Q8H PRN PRN PRN Reason: NAUSEA/VOMITING Sodium Chloride () 5 - 15 ml IV UD PRN PRN Reason: SALINE FLUSH Last Admin: 08/05/19 05:25 Dose: 10 ml Documented by: Medical Necessity - Tobacco Use Smoking Status: Former smoker Tobacco Use: Non-smoker Assessment/Plan All Active Problems Small bowel obstruction (Acute) Cervical cancer (Resolved) Ovarian cancer (Resolved) Patient is a 59-year-old lady with previous intra-abdominal surgery including cholecystectomy, hysterectomy and oophorectomy who presented with abdominal pain and assessment of small bowel obstruction made admitted to regular nursing floor 1. Small bowel obstruction ~Suspected secondary to adhesions. Patient has been admitted to the regular nursing floor managed conservatively with bowel rest, IV fluids, antinausea medications, n.p.o. for now and consult placed to general surgery patient has been seen by Dr. Ami Tijerina's note and recommendations reviewed 2. History of ovarian and cervical cancer ~status post partial hysterectomy patient has since remained in remission 3. Essential hypertension ~Patient placed on as needed hydralazine 4. Polysubstance abuse ~Patient has previous history of heroine however admits to occasional meth use and marijuana as well ~counseled on cessation 5. Abnormal chest X-ray ~There was a mention of questionable cavitary lesion however subsequent CAT scan obtained did not identify any lesions. 6. Hiatal hernia ~Patient placed on H2 blockers 7. DVT prophylaxis ~Enoxaparin Active Medications Albuterol Sulfate (Ventolin Aerosols) 2.5 mg INHALATION Q2H PRN PRN PRN Reason: dyspnea, wheezing Dextrose (D50w Syringe) 0 gm IV X1 PRN; Protocol PRN Reason: Hypoglycemia Enoxaparin Sodium (Lovenox) 40 mg SC DAILY@0600 [facility] Last Admin: 08/05/19 05:30 Dose: 40 mg Documented by: Glucagon () 1 mg IM .X1 PRN PRN Reason: Hypoglycemia Hydralazine HCl (Apresoline Iv) 10 mg IV Q4H PRN PRN PRN Reason: SBP > 160 Hydroxyzine HCl (Vistaril Vial) 25 mg IM Q6H PRN PRN PRN Reason: ANXIETY Sodium Chloride () 250 mls @ 15 mls/hr IV .[id number] PRN PRN Reason: SALINE FLUSH Famotidine 20 mg/ Sodium (Chloride) 10 mls @ 300 mls/hr IV Q12 [facility] Last Infusion: 08/04/19 22:52 Dose: Infused Documented by: Lactated Ringer's () 1,000 mls @ 150 mls/hr IV .[id number] [facility] Last Admin: 08/05/19 04:49 Dose: 150 mls/hr Documented by: Ketorolac Tromethamine (Toradol) 30 mg IV Q8 [facility] Stop: 08/05/19 22:01 Last Admin: 08/05/19 05:25 Dose: 30 mg Documented by: Morphine Sulfate () 2 - 4 mg IV Q4H PRN PRN PRN Reason: Pain Score 1-10/10 Last Admin: 08/05/19 02:25 Dose: 2 mg Documented by: Ondansetron HCl (Zofran) 4 mg IV Q8H PRN PRN PRN Reason: NAUSEA/VOMITING Sodium Chloride () 5 - 15 ml IV UD PRN PRN Reason: SALINE FLUSH Last Admin: 08/05/19 05:25 Dose: 10 ml Documented by: Clinical Impression(s) from Imaging Studies Abdomen/Pelvis CT 08/04/19 14:59 IMPRESSION: Small bowel obstruction. Abrupt transition in the mid lower abdomen suggests adhesion as the etiology. At and just distal to the transition point the bowel is mildly thick walled; most likely representing reactive edema with mass or other etiology less likely but possible. A cluster of increased density structures within the most distal dilated obstructed loop probably representing nondigested pills/medication. Please correlate with history. No acute findings in the chest. Moderate to large hiatal hernia incidentally noted. Electronically Signed: Be Gutierrez, at 17:31 EDT Tel , Service support , Chest X-Ray 08/04/19 15:00 IMPRESSION: Cavitary-appearing type lesions seen in the left lung base of uncertain etiology. Cavitary neoplasm versus pneumonia versus heart valve calcification and adjacent arthritic change throughout the its appearance and a CT scan of the chest with and without IV contrast would be helpful for further evaluation. Electronically Signed: Hernando Garcia at 15:27 EDT Tel , Service support , Chest CT 08/04/19 15:30 IMPRESSION: Small bowel obstruction. Abrupt transition in the mid lower abdomen suggests adhesion as the etiology. At and just distal to the transition point the bowel is mildly thick walled; most likely representing reactive edema with mass or other etiology less likely but possible. A cluster of increased density structures within the most distal dilated obstructed loop probably representing nondigested pills/medication. Please correlate with history. No acute findings in the chest. Moderate to large hiatal hernia incidentally noted. Electronically Signed: Be Gutierrez, at 17:29 EDT Tel , Service support , ADDENDUM: 08/04/19 1745 KUB X-Ray 08/04/19 18:36 IMPRESSION: Enteric tube tip in the distal stomach directed to the right and inferiorly in the right mid abdomen. Electronically Signed: Be Gutierrez, at 19:01 EDT Tel , Service support , KUB X-Ray 08/05/19 05:55 IMPRESSION: Partial small bowel obstruction, not significant changed compared to prior imaging, with migration of oral contrast into the ascending colon. Electronically Signed: Rayo Singh MD at 3:28 EDT Tel , Service support , Code Visit Inpatient E&M: 74847 Subs Hosp L2
--- NOTE | 2019-08-05 07:32 | PN.SURG_ITS ---
Patient Problems: Active and Suspected Problems Small bowel obstruction (Acute) Subjective: Patient states that her pain is unchanged, still rates as occasionally 10 out of 10 on scale of 1-10 denies flatus, denies BM - Physical Exam General: Alert, Oriented x3 Oral: Moist Mucosa Neck: Supple Cardiovascular: Regular rate Abdomen: Soft - patient complaint of generalized tenderness - there is no guarding or peritoneal signs, Obese Vital Signs Temp Pulse Resp BP Pulse Ox 98.3 F 77 16 120/93 H 97 08/05/19 02:22 08/05/19 02:22 08/05/19 02:22 08/05/19 02:22 08/05/19 02:22 Oxygen Delivery Method Room Air Weight: 86.228 kg Body Mass Index (BMI) 37.1 Intake and Output for Last 24 Hours 08/03/19 08/04/19 08/05/19 23:59 23:59 23:59 Intake Total 2260 / 2260 1092.5 / 1092.5 Output Total 350 / 350 200 / 200 Balance 1910 / 1910 892.5 / 892.5 Laboratory Tests Past 24 Hrs 08/04/19 08/04/19 08/04/19 15:18 15:18 15:18 WBC 11.0 RBC 4.87 Hgb 15.1 H Hct 44.9 MCV 92.2 MCH 31.0 MCHC 33.6 RDW Std Deviation 40.7 RDW Coeff of Romeo 11.9 Plt Count 384 MPV 8.2 Immature Gran % (Auto) 0.800 Neut % (Auto) 80.3 H Lymph % (Auto) 13.2 L [place] % (Auto) 5.3 Eos % (Auto) 0.1 Baso % (Auto) 0.3 Absolute Neuts (auto) 8.9 H Absolute Lymphs (auto) 1.46 Nucleated RBC % 0 Sodium 140 Potassium 3.9 Chloride 105 Carbon Dioxide 25.0 Anion Gap 10 BUN 15 Creatinine 1.01 Estim Creat Clear Calc 44.14 Est GFR (MDRD) Af Amer 73 Est GFR (MDRD) Non-Af 60 BUN/Creatinine Ratio 14.9 Glucose 114 H Lactic Acid Calcium 8.8 Total Bilirubin 0.90 AST 41 H ALT 54 Alkaline Phosphatase 86 Troponin I < 0.015 Total Protein 8.2 Albumin 3.0 L Globulin 5.2 H Albumin/Globulin Ratio 0.6 L Lipase 50 L Urine Color Urine Clarity Urine pH Ur Specific [place] Urine Protein Urine Glucose (UA) Urine Ketones Urine Occult Blood Urine Nitrite Urine Bilirubin Urine Urobilinogen Ur Leukocyte Esterase Urine RBC Urine WBC Ur Squamous Epith Cells Urine Bacteria Hyaline Casts Coarse Granular Casts Urine Mucus Urine Opiates Screen Urine Methadone Screen Ur Barbiturates Screen Ur Phencyclidine Scrn Ur Amphetamines Screen U Methamphetamin-MDMA U Benzodiazepines Scrn Urine Cocaine Screen U Cannabinoids Screen Ur Drug Screen Comment Hepatitis A IgM Ab Pending Hepatitis A Ab Total Pending Hep Bs Antigen Pending Hep B Core Total Ab Pending Hep B Core IgM Ab Pending HIV 1&2 Antibody 08/04/19 08/04/19 08/04/19 15:18 16:00 16:00 WBC RBC Hgb Hct MCV MCH MCHC RDW Std Deviation RDW Coeff of Romeo Plt Count MPV Immature Gran % (Auto) Neut % (Auto) Lymph % (Auto) [place] % (Auto) Eos % (Auto) Baso % (Auto) Absolute Neuts (auto) Absolute Lymphs (auto) Nucleated RBC % Sodium Potassium Chloride Carbon Dioxide Anion Gap BUN Creatinine Estim Creat Clear Calc Est GFR (MDRD) Af Amer Est GFR (MDRD) Non-Af BUN/Creatinine Ratio Glucose Lactic Acid Calcium Total Bilirubin AST ALT Alkaline Phosphatase Troponin I Total Protein Albumin Globulin Albumin/Globulin Ratio Lipase Urine Color Yellow Urine Clarity Sl. Cloudy Urine pH 6.0 Ur Specific [place] 1.020 Urine Protein 30 H Urine Glucose (UA) Normal Urine Ketones 15 H Urine Occult Blood 10 H Urine Nitrite Negative Urine Bilirubin 1 H Urine Urobilinogen 8 H Ur Leukocyte Esterase 25 H Urine RBC 0 SEEN Urine WBC 0-5 SEEN Ur Squamous Epith Cells 0 SEEN Urine Bacteria 0 SEEN Hyaline Casts 5-10 SEEN Coarse Granular Casts 0-5 SEEN Urine Mucus 4+ Urine Opiates Screen NEGATIVE Urine Methadone Screen NEGATIVE Ur Barbiturates Screen NEGATIVE Ur Phencyclidine Scrn NEGATIVE Ur Amphetamines Screen NEGATIVE U Methamphetamin-MDMA NEGATIVE U Benzodiazepines Scrn NEGATIVE Urine Cocaine Screen NEGATIVE U Cannabinoids Screen POSITIVE H Ur Drug Screen Comment Hepatitis A IgM Ab Hepatitis A Ab Total Hep Bs Antigen Hep B Core Total Ab Hep B Core IgM Ab HIV 1&2 Antibody Non-Reactive 08/04/19 08/05/19 08/05/19 18:02 06:48 06:48 WBC Pending RBC Pending Hgb Pending Hct Pending MCV Pending MCH Pending MCHC Pending RDW Std Deviation Pending RDW Coeff of Romeo Pending Plt Count Pending MPV Immature Gran % (Auto) Neut % (Auto) Pending Lymph % (Auto) [place] % (Auto) Eos % (Auto) Baso % (Auto) Absolute Neuts (auto) Pending Absolute Lymphs (auto) Nucleated RBC % Sodium Pending Potassium Pending Chloride Pending Carbon Dioxide Pending Anion Gap Pending BUN Pending Creatinine Pending Estim Creat Clear Calc Est GFR (MDRD) Af Amer Pending Est GFR (MDRD) Non-Af Pending BUN/Creatinine Ratio Pending Glucose Pending Lactic Acid 1.1 Calcium Pending Total Bilirubin Pending AST Pending ALT Pending Alkaline Phosphatase Pending Troponin I Total Protein Pending Albumin Pending Globulin Albumin/Globulin Ratio Lipase Urine Color Urine Clarity Urine pH Ur Specific [place] Urine Protein Urine Glucose (UA) Urine Ketones Urine Occult Blood Urine Nitrite Urine Bilirubin Urine Urobilinogen Ur Leukocyte Esterase Urine RBC Urine WBC Ur Squamous Epith Cells Urine Bacteria Hyaline Casts Coarse Granular Casts Urine Mucus Urine Opiates Screen Urine Methadone Screen Ur Barbiturates Screen Ur Phencyclidine Scrn Ur Amphetamines Screen U Methamphetamin-MDMA U Benzodiazepines Scrn Urine Cocaine Screen U Cannabinoids Screen Ur Drug Screen Comment Hepatitis A IgM Ab Hepatitis A Ab Total Hep Bs Antigen Hep B Core Total Ab Hep B Core IgM Ab HIV 1&2 Antibody Medical Necessity - Tobacco Use Smoking Status: Former smoker Tobacco Use: Non-smoker Assessment/Plan All Active Problems Small bowel obstruction (Acute) Cervical cancer (Resolved) Ovarian cancer (Resolved) Impression: partial small bowel obstruction Plan: Patient with chronic pain syndrome - still complaint of significant abdominal pain, difficult to determine reliability of this patient states that she is still obstipated, though contrast noted in right colon on this morning's KUB she remains afebrile, WBC is normal Will recheck KUB in early afternoon, can't get good KUB by portable due to patient's body habitus, will have her go down to radiology suite for this, can clamp NG tube during this continue observation, NG tube decompression
[2019-08-05 07:34] LABS: Absolute Lymphocyte Count 1.38 X10^3/uL (0.83-4.51); Absolute Neutrophil Count 7.7 X10^3/uL (2.0-7.7); Basophil# 0.04 X10^3/uL; Basophil% 0.4 % (0-1); Eosinophil# 0.14 X10^3/uL; Eosinophils% 1.4 % (0-5); Hematocrit 42.3 % (37-47); Hemoglobin 13.8 g/dL (12.0-15.0); Lymphocyte # 1.38 X10^3/ul (4.0); Lymphocyte % 13.4 % (19-41); Mean Corp Hgb Conc 32.6 g/dL (32-36); Mean Corpuscular Hgb 30.3 pg (27.0-32.0); Mean Corpuscular Volume 92.8 fL (81-99); Mean Platelet Vol. 8.4 fl (6.2-12.0); Monocyte# 1.01 X10^3/uL; Monocyte% 9.8 % (0-10); NRBC Flagged by Analyzer 0 % (0-5); Neutrophil # 7.67 X10^3/uL (2.7-7.7); Neutrophil % 74.6 % (47-70); Platelet Count 366 K/mm3 (150-450); RBC Distribution Width CV 12.1 % (11.6-14.6); RBC Distribution Width SD 41.5 fl (35.1-43.9); Red Blood Count 4.56 M/mm3 (4.2-5.4); White Blood Count 10.3 K/mm3 (4.4-11.0)
[2019-08-05 07:47] LABS: ALB/GLOB Ratio 0.6 RATIO (0.9-2.4); AST(SGOT) 29 U/L (15-37); Alanine Aminotransfer ALT/SGPT 40 U/L (13-56); Albumin, Serum 2.4 g/dL (3.2-5.0); Alkaline Phosphatase 73 U/L (45-117); Anion Gap 6 (5-15); BUN 18 mg/dL (7-18); BUN/Creat Ratio 25.4 RATIO (10-20); Calcium,Total 8.3 mg/dL (8.5-10.1); Chloride 109 mmol/L (98-107); Creatinine, Serum 0.71 mg/dL (0.55-1.02); EST Glomerular Filtration Rate 90 mL/min (>60); Est Glom Filt Rate - Afr Amer 109 mL/min (>60); Estimated Creatinine Clearance 62.79 ml/min; Globulin 4.2 g/dL (2.2-4.2); Glucose 98 mg/dL (74-106); Potassium 3.5 mmol/L (3.5-5.1); Protein, Total 6.6 g/dL (6.4-8.2); Sodium Level 141 mmol/L (136-145)
[2019-08-05 08:12] VITALS: O2SAT 96
[2019-08-05 08:28] VITALS: BP 127/80; PULSE 71; RESP 16; TEMP 36.7; O2SAT 95
[2019-08-05 09:45] VITALS: PULSE 72
--- NOTE | 2019-08-05 10:43 | CASEMGMT ---
Social Work Referral Date: 08/05/19 Date of Assessment: 08/05/19 Reason for Consult: Drug abuse Informant: WOO Wells Personal Status Mentation: A&Ox3, pt able and willing to answer questions. Sleepy at beginning of conversation and became more sleepy as conversation continued. Living Arrangements: Pt lives with a roommate Emeterio Chávez. Pt currently has no one listed on demographic sheet. SW inquired if Emeterio could be added but pt denies stating he does not have a phone so could not be contacted anyway. Pt stating she feels safe in her home. Employment: Disabled Family dynamics/relationships: Pt stating she has two children. A son in [place] and a daughter in [place]. Pt states she talks to them a couple times of week but denies adding them to demographic sheet or providing more information on them. ADLs: Pt stating she is independent with ADLs. Emeterio does cooking. Pt does not drive but Emeterio can provide transport for appointments and errands. Medical Hx and Current Status: Pt confirming she has had ovarian and cervical cancer in the past but has had surgery and it has been taken care of. Currently presenting with SBO and pt is aware of this. Substance Abuse Hx and Current Pattern of Use Alcohol: pt stating she drinks rum and coke twice a month Tobacco: pt denies Marijuana: Pt stating she smokes marijuana a couple times a week but is currently out and having difficulty finding any Heroin: Pt states she OD on heroin last September and has not used it since. Methamphetamine: pt states she uses meth a couple times a month but has not used recently. Pt stating her roommate also uses Meth but they do not do it together. Treatment: Pt confirming she has spoken to [facility] a couple of months ago and thought about talking to one of their substance abuse counselors but did not make an appointment to do so. SW encouraged pt to speak with [facility] again at this time and to set an appointment with a counselor to assist with substance abuse. Pt denies SW making an appointment with [facility] for pt. Written information with phone number provided to pt. Pt stating she doesn't think she needs to call them because she is getting tired of using drugs and getting too old for this and does not plan to take drugs any longer. Mental Health History and Current Status Medical record indicates dx anxiety, depression, PTSD and agoraphobia. Pt stating she does have anxiety and takes medication for this. Pt also able to state she is taking Cymbalta. Pt does state [facility] and had an appointment in the last month. Medications are filled at [facility]. When inquiring about a therapist at the [facility], pt says she saw a therapist a while ago but now only sees Dr. Arellano, who has also encouraged her to see a substance abuse counselor at [facility]. Resources JFS: Pt does receive a food card and is enrolled in [employer]. Pt denies having a [facility] telephonic nurse case manager. Intervention SW encouraged appointment with [facility] counselor to discuss Substance abuse. Pt refused SW to make appointment. Did accept written information and states will consider making appointment, however pt stating she will just stop as she is getting tired of using drugs. Pt does think she has a follow up appointment with Dr. Arellano but unable to say when. Plan Pt plans to return [place] with her roommate Emeterio at time of discharge. Denies any home going needs at this time. TRI Romeo
--- NOTE | 2019-08-05 13:00 | RAD_ITS ---
STUDY: X-RAY - ABDOMEN/PELVIS REASON FOR EXAM: Female, 59 years old. TECHNIQUE: KUB COMPARISON: None. FINDINGS: Moderate size sliding hiatal hernia is identified in the lung bases. An NG tube is also seen traversing distal esophagus with its tip in the antral portion of the stomach. Gaseous distention noted of loops of jejunum due to a partial mechanical small bowel obstruction which is unchanged. There is residual contrast material noted in the cecum and transverse portion of the colon indicating that at least some contrast material passed by the transition point in the mid intestines. There is no demonstrated free abdominal air. The visualized liver, spleen and kidneys are grossly normal in size and morphology. Normal soft tissue structures. Normal visualized osseous structures. RAD/Abdomen Single View IMPRESSION: An NG tube is again noted in place in this patient with a mechanical small bowel partial obstruction which is unchanged. Electronically Signed: Hernando Garcia, at 13:36 EDT Tel , Service support ,
[2019-08-05 14:19] VITALS: BP 133/82; PULSE 97; RESP 16; TEMP 36.7; O2SAT 97
--- NOTE | 2019-08-05 14:44 | PCM.PN.BLA ---
Progress Note Patient states that she started passing flatus she denies abdominal pain at present feels hungry will d/c NG tube start clear liquid diet (no carbonated beverages) if tolerates, d/c to home on liquid diet
--- NOTE | 2019-08-05 15:43 | DCINST_ITS ---
- Discharge Diagnoses Current Active Problems: Current Active and Chronic Problems Methamphetamine abuse (Chronic) Heroin abuse (Chronic) Marijuana abuse (Chronic) Small bowel obstruction (Acute) Anxiety (Chronic) HTN (hypertension) (Chronic) Restless leg syndrome (Chronic) You will use the following diet at home:: Clear liquid Discharge Activity: Return to Normal Activity Allergies/Adverse Reactions: Allergies No Known Allergies Allergy (Verified 08/04/19 13:59) Medications to take at Discharge Duloxetine HCl 120 mg PO DAILY 12/09/17 Gabapentin [Neurontin] 1,200 mg PO BIDCM 12/09/17 Gabapentin [Neurontin] 600 mg PO LUNCH 12/09/17 Loratadine 10 mg PO DAILY PRN 12/09/17 Meloxicam 15 mg PO DAILY 12/09/17 cycloBENZAPRine HCl [Flexeril] 10 mg PO BID PRN 12/09/17 Albuterol IH (ProAir) [Proair Hfa] 2 puff INHALATION Q4H PRN PRN 08/04/19 Buspirone HCl 20 mg PO TID 08/04/19 Lisinopril [Zestril] 20 mg PO DAILY 08/04/19 Primary Care Physician: Jennifer Kaiser MD [Primary Care Provider] - Please follow up with your Primary Care Physician in: in 5-7 days Test Results: Test results from this visit will be discussed in further detail at your follow- up appointment, if applicable. Please Follow Up With: Ami Tijerina MD When: in 5-7 days Proposed Discharge Date: 08/05/19
--- NOTE | 2019-08-05 15:47 | DS.PCM_ITS ---
Discharge Date and Diagnosis - Problem List Patient Problems: Active and Suspected Problems Small bowel obstruction (Acute) Date of Admission: 08/04/19 Date of Discharge: 08/05/19 - Primary Discharge Diagnosis Active and Suspected Problems Small bowel obstruction (Acute) - Secondary Discharge Diagnosis Chronic Problems Methamphetamine abuse (Chronic) Heroin abuse (Chronic) Marijuana abuse (Chronic) Anxiety (Chronic) HTN (hypertension) (Chronic) Restless leg syndrome (Chronic) Hospital Course and Treatment Imaging Results: Clinical Impression(s) from Imaging Studies Abdomen/Pelvis CT 08/04/19 14:59 IMPRESSION: Small bowel obstruction. Abrupt transition in the mid lower abdomen suggests adhesion as the etiology. At and just distal to the transition point the bowel is mildly thick walled; most likely representing reactive edema with mass or other etiology less likely but possible. A cluster of increased density structures within the most distal dilated obstructed loop probably representing nondigested pills/medication. Please correlate with history. No acute findings in the chest. Moderate to large hiatal hernia incidentally noted. Electronically Signed: Be Gutierrez, at 17:31 EDT Tel , Service support , ADDENDUM: 08/04/19 1743 IMPRESSION: Small bowel obstruction. Abrupt transition in the mid lower abdomen suggests adhesion as the etiology. At and just distal to the transition point the bowel is mildly thick walled; most likely representing reactive edema with mass or other etiology less likely but possible. A cluster of increased density structures within the most distal dilated obstructed loop probably representing nondigested pills/medication. Please correlate with history. No acute findings in the chest. Moderate to large hiatal hernia incidentally noted. N.B. : The above information has been verbally conveyed by Be Gutierrez to Camila Sequeira MD, on 08/04/2019 17:36:11 (ET). Electronically Signed: Be Gutierrez, at 17:31 EDT Tel , Service support , ADDENDUM: 08/04/19 1744 ADDENDUM: 08/04/19 1923 Chest X-Ray 08/04/19 15:00 IMPRESSION: Cavitary-appearing type lesions seen in the left lung base of uncertain etiology. Cavitary neoplasm versus pneumonia versus heart valve calcification and adjacent arthritic change throughout the its appearance and a CT scan of the chest with and without IV contrast would be helpful for further evaluation. Electronically Signed: Hernando Garcia, at 15:27 EDT Tel , Service support , Chest CT 08/04/19 15:30 IMPRESSION: Small bowel obstruction. Abrupt transition in the mid lower abdomen suggests adhesion as the etiology. At and just distal to the transition point the bowel is mildly thick walled; most likely representing reactive edema with mass or other etiology less likely but possible. A cluster of increased density structures within the most distal dilated obstructed loop probably representing nondigested pills/medication. Please correlate with history. No acute findings in the chest. Moderate to large hiatal hernia incidentally noted. Electronically Signed: Be Gutierrez at 17:29 EDT Tel , Service support , ADDENDUM: 08/04/19 1745 KUB X-Ray 08/04/19 18:36 IMPRESSION: Enteric tube tip in the distal stomach directed to the right and inferiorly in the right mid abdomen. Electronically Signed: Be Gutierrez, at 19:01 EDT Tel , Service support , KUB X-Ray 08/05/19 05:55 IMPRESSION: Partial small bowel obstruction, not significant changed compared to prior imaging, with migration of oral contrast into the ascending colon. Electronically Signed: Rayo Singh MD at 3:28 EDT Tel , Service support , KUB X-Ray 08/05/19 13:00 IMPRESSION: An NG tube is again noted in place in this patient with a mechanical small bowel partial obstruction which is unchanged. Electronically Signed: Hernando Garcia at 13:36 EDT Tel , Service support , Summary of Care Provided: Patient is a 59-year-old lady with previous intra-abdominal surgery including cholecystectomy, hysterectomy and oophorectomy who presented with abdominal pain and assessment of small bowel obstruction made admitted to regular nursing floor 1. Small bowel obstruction ~Suspected secondary to adhesions. Patient has been admitted to the regular nursing floor managed conservatively with bowel rest, IV fluids, antinausea medications, n.p.o. for now and consult placed to general surgery patient has been seen by Dr. Ami Tijerina's note and recommendations reviewed ?Patient was expected to stay at least 2 midnight however given her rather rapid improvement her NG tube was discontinued patient started on clear liquid the past both gas and had a bowel movement. She subsequently requested to be discharged to. Discharge was approved by general surgery. Patient was discharged home on clear liquid with plans to follow-up with general surgery as well as PCP for subsequent management. 2. History of ovarian and cervical cancer ~status post partial hysterectomy patient has since remained in remission 3. Essential hypertension ~Patient placed on as needed hydralazine 4. Polysubstance abuse ~Patient has previous history of heroine however admits to occasional meth use and marijuana as well ~counseled on cessation 5. Abnormal chest X-ray ~There was a mention of questionable cavitary lesion however subsequent CAT scan obtained did not identify any lesions. 6. Hiatal hernia ~Patient placed on H2 blockers 7. DVT prophylaxis ~Enoxaparin Patient Problems: Active and Suspected Problems Small bowel obstruction (Acute) - Physical Exam General: Alert HEENT: Atraumatic Lungs: Normal air movement Psych/Mental Status: Normal Affect Vital Signs Temp Pulse Resp BP Pulse Ox 98.1 F 97 16 133/82 H 97 08/05/19 14:19 08/05/19 14:19 08/05/19 14:19 08/05/19 14:19 08/05/19 14:19 Oxygen Delivery Method Room Air Weight: 86.2 kg Body Mass Index (BMI) 37.1 Intake and Output for Last 24 Hours 08/03/19 08/04/19 08/05/19 23:59 23:59 23:59 Intake Total 2260 / 2260 2672.5 / 2672.5 Output Total 350 / 350 500 / 500 Balance 1909 / 1909 2172.5 / 2172.5 Laboratory Tests Past 24 Hrs 08/04/19 08/04/19 08/04/19 15:18 15:18 16:00 WBC RBC Hgb Hct MCV MCH MCHC RDW Std Deviation RDW Coeff of Romeo Plt Count MPV Immature Gran % (Auto) Neut % (Auto) Lymph % (Auto) [place] % (Auto) Eos % (Auto) Baso % (Auto) Absolute Neuts (auto) Absolute Lymphs (auto) Nucleated RBC % Sodium Potassium Chloride Carbon Dioxide Anion Gap BUN Creatinine Estim Creat Clear Calc Est GFR (MDRD) Af Amer Est GFR (MDRD) Non-Af BUN/Creatinine Ratio Glucose Lactic Acid Calcium Total Bilirubin AST ALT Alkaline Phosphatase Total Protein Albumin Globulin Albumin/Globulin Ratio Urine Color Yellow Urine Clarity Sl. Cloudy Urine pH 6.0 Ur Specific [place] 1.020 Urine Protein 30 H Urine Glucose (UA) Normal Urine Ketones 15 H Urine Occult Blood 10 H Urine Nitrite Negative Urine Bilirubin 1 H Urine Urobilinogen 8 H Ur Leukocyte Esterase 25 H Urine RBC 0 SEEN Urine WBC 0-5 SEEN Ur Squamous Epith Cells 0 SEEN Urine Bacteria 0 SEEN Hyaline Casts 5-10 SEEN Coarse Granular Casts 0-5 SEEN Urine Mucus 4+ Urine Opiates Screen Urine Methadone Screen Ur Barbiturates Screen Ur Phencyclidine Scrn Ur Amphetamines Screen U Methamphetamin-MDMA U Benzodiazepines Scrn Urine Cocaine Screen U Cannabinoids Screen Ur Drug Screen Comment Hepatitis A IgM Ab Pending Hepatitis A Ab Total Pending Hep Bs Antigen Pending Hep B Core Total Ab Pending Hep B Core IgM Ab Pending HIV 1&2 Antibody Non-Reactive 08/04/19 08/04/19 08/05/19 16:00 18:02 06:48 WBC 10.3 RBC 4.56 Hgb 13.8 Hct 42.3 MCV 92.8 MCH 30.3 MCHC 32.6 RDW Std Deviation 41.5 RDW Coeff of Romeo 12.1 Plt Count 366 MPV 8.4 Immature Gran % (Auto) 0.400 Neut % (Auto) 74.6 H Lymph % (Auto) 13.4 L [place] % (Auto) 9.8 Eos % (Auto) 1.4 Baso % (Auto) 0.4 Absolute Neuts (auto) 7.7 Absolute Lymphs (auto) 1.38 Nucleated RBC % 0 Sodium Potassium Chloride Carbon Dioxide Anion Gap BUN Creatinine Estim Creat Clear Calc Est GFR (MDRD) Af Amer Est GFR (MDRD) Non-Af BUN/Creatinine Ratio Glucose Lactic Acid 1.1 Calcium Total Bilirubin AST ALT Alkaline Phosphatase Total Protein Albumin Globulin Albumin/Globulin Ratio Urine Color Urine Clarity Urine pH Ur Specific [place] Urine Protein Urine Glucose (UA) Urine Ketones Urine Occult Blood Urine Nitrite Urine Bilirubin Urine Urobilinogen Ur Leukocyte Esterase Urine RBC Urine WBC Ur Squamous Epith Cells Urine Bacteria Hyaline Casts Coarse Granular Casts Urine Mucus Urine Opiates Screen NEGATIVE Urine Methadone Screen NEGATIVE Ur Barbiturates Screen NEGATIVE Ur Phencyclidine Scrn NEGATIVE Ur Amphetamines Screen NEGATIVE U Methamphetamin-MDMA NEGATIVE U Benzodiazepines Scrn NEGATIVE Urine Cocaine Screen NEGATIVE U Cannabinoids Screen POSITIVE H Ur Drug Screen Comment Hepatitis A IgM Ab Hepatitis A Ab Total Hep Bs Antigen Hep B Core Total Ab Hep B Core IgM Ab HIV 1&2 Antibody 08/05/19 06:48 WBC RBC Hgb Hct MCV MCH MCHC RDW Std Deviation RDW Coeff of Romeo Plt Count MPV Immature Gran % (Auto) Neut % (Auto) Lymph % (Auto) [place] % (Auto) Eos % (Auto) Baso % (Auto) Absolute Neuts (auto) Absolute Lymphs (auto) Nucleated RBC % Sodium 141 Potassium 3.5 Chloride 109 H Carbon Dioxide 26.0 Anion Gap 6 BUN 18 Creatinine 0.71 Estim Creat Clear Calc 62.79 Est GFR (MDRD) Af Amer 109 Est GFR (MDRD) Non-Af 90 BUN/Creatinine Ratio 25.4 H Glucose 98 Lactic Acid Calcium 8.3 L Total Bilirubin 0.90 AST 29 ALT 40 Alkaline Phosphatase 73 Total Protein 6.6 Albumin 2.4 L Globulin 4.2 Albumin/Globulin Ratio 0.6 L Urine Color Urine Clarity Urine pH Ur Specific [place] Urine Protein Urine Glucose (UA) Urine Ketones Urine Occult Blood Urine Nitrite Urine Bilirubin Urine Urobilinogen Ur Leukocyte Esterase Urine RBC Urine WBC Ur Squamous Epith Cells Urine Bacteria Hyaline Casts Coarse Granular Casts Urine Mucus Urine Opiates Screen Urine Methadone Screen Ur Barbiturates Screen Ur Phencyclidine Scrn Ur Amphetamines Screen U Methamphetamin-MDMA U Benzodiazepines Scrn Urine Cocaine Screen U Cannabinoids Screen Ur Drug Screen Comment Hepatitis A IgM Ab Hepatitis A Ab Total Hep Bs Antigen Hep B Core Total Ab Hep B Core IgM Ab HIV 1&2 Antibody Discharge Diet: Light diet - advance as tolerated Discharge Activity: Return to Normal Activity Home Medications: Medications to take at Discharge Duloxetine HCl 120 mg PO DAILY 12/09/17 Gabapentin [Neurontin] 1,200 mg PO BIDCM 12/09/17 Gabapentin [Neurontin] 600 mg PO LUNCH 12/09/17 Loratadine 10 mg PO DAILY PRN 12/09/17 Meloxicam 15 mg PO DAILY 12/09/17 cycloBENZAPRine HCl [Flexeril] 10 mg PO BID PRN 12/09/17 Albuterol IH (ProAir) [Proair Hfa] 2 puff INHALATION Q4H PRN PRN 08/04/19 Buspirone HCl 20 mg PO TID 08/04/19 Lisinopril [Zestril] 20 mg PO DAILY 08/04/19 Primary Care Physician: Jennifer Kaiser MD [Primary Care Provider] - Please follow up with your Primary Care Physician in: in 5-7 days Please Follow Up With: Ami Tijerina MD When: in 5-7 days Disposition: Home Minutes spent on discharge:: 35 Patient Condition:: Stable Medical Necessity - Tobacco Use Smoking Status: Former smoker Tobacco Use: Non-smoker Meaningful Use Info Meaningful Use Diagnoses (Choose all that apply): None applicable Code Visit Inpatient E&M: 67713 Disch Hosp
[2019-08-06 04:07] LABS: HEPATITIS B SURFACE AG Negative (Negative); Hepatitis A AB, Total Positive (Negative); Hepatitis A IgM Antibody Negative (Negative); Hepatitis B Core AB IgM Negative (Negative); Hepatitis B Core Ab Total Negative (Negative); Hepatitis C Ab >11.0 s/co ratio (0.0-0.9)
[2019-08-06 08:57] LABS: Hep B Surface Antibodies Non Reactive (.)
== END 2019-08-05 14:00 | disposition home or self-care (01) | DRG 390 ==
LOC: ED 16:06 → MS3 18:14
PROVIDERS: Admitting Provider Family Medicine; Emergency Provider Emergency Medicine; Family Provider Internal Medicine; PCP Internal Medicine; Referring Provider Family Medicine; Visit Provider Internal Medicine
DX: K56.51 Intestinal adhesions [bands], with partial obstruction (principal); K44.9 Diaphragmatic hernia without obstruction or gangrene; I10 Essential (primary) hypertension; G25.81 Restless legs syndrome; F41.9 Anxiety disorder, unspecified; F15.10 Other stimulant abuse, uncomplicated; F11.10 Opioid abuse, uncomplicated; F12.10 Cannabis abuse, uncomplicated; R91.8 Other nonspecific abnormal finding of lung field; Z85.43 Personal history of malignant neoplasm of ovary; Z85.41 Personal history of malignant neoplasm of cervix uteri; Z90.711 Acquired absence of uterus with remaining cervical stump; Z79.1 Long term (current) use of non-steroidal anti-inflammatories (NSAID); Z79.899 Other long term (current) drug therapy; Z87.891 Personal history of nicotine dependence
CPT/HCPCS: 36415; 71045; 71260; 74018; 74177; 80053; 80307; 81001; 83605; 83690; 84484; 85025; 86703; 86704; 86705; 86706; 86708; 86709; 86803; 87340; 93005; 94640; 97802; 99285; J7030; J7120; Q9967; A4216; J2405; J3490

== ENCOUNTER 2019-11-08 11:36 | Observation (INO) | payer MEDICARE, SELFPAY ==
[2019-11-08] VITALS (7 sets, daily range): BP systolic 104–124; BP diastolic 71–87; PULSE 75–98; RESP 16–18; TEMP 35.7–37; O2SAT 94–100; BMI 38.0; BMI 37.8; BMI 37.9; BMI 36.8
--- NOTE | 2019-11-08 12:17 | CT_ITS ---
STUDY: CT ABDOMEN AND PELVIS WITH CONTRAST REASON FOR EXAM: Female, 59 years old. EPIGASTRIC PAIN, VOMITING, BROWN EMESIS, HX SBO RADIATION DOSAGE (If Supplied By Facility): CTDIvol = ( 18.72 ) mGy, DLP = ( 1082.50 ) mGycm TECHNIQUE: Transaxial images were obtained from the dome of the diaphragm to the symphysis pubis without oral contrast. IV 100mL Isovue-300 was administered. Sagittal and coronal images were reconstructed. Individualized dose optimization techniques were used for this CT. COMPARISON: Comparison is made with prior study dated August 04, 2019. FINDINGS: The visualized lung bases are unremarkable. The visualized portions of the heart are within normal limits. Normal liver. There are surgical clips in the gallbladder fossa consistent with a prior cholecystectomy. Minimal degree of intrahepatic biliary ductal dilatation most likely secondary to the post cholecystectomy state. This is unchanged. Normal spleen. Normal pancreas. Normal bilateral adrenal glands. Normal right kidney. Normal left kidney. There is a moderate-sized hiatal hernia. There are dilated loops of the small intestine with a non-distended colon consistent with a small bowel obstruction. The transition point is in the mid ileal level. Once again, there are 5 oval shaped objects of increased attenuation at the level of the transition point. There is evidence of the surrounding inflammatory changes in the mesentery. Scattered sigmoid diverticulosis. The appendix is visualized and appears normal. Normal abdominal aorta. Normal inferior vena cava. Normal retroperitoneum. Normal urinary bladder. Normal abdominal wall. Normal osseous structures. CT/Abdomen/Pelvis W IV Cont ONLY IMPRESSION: Findings in keeping with the small bowel obstruction in the mid ileal level where there is evidence of a several radiopacities most likely representing foreign bodies. These are unchanged as compared to prior study. The small bowel loop at that site is of increased thickness with increased markings in the surrounding peritoneum. Electronically Signed: Narendra Nolan, at 13:34 EST , Service support ,
--- NOTE | 2019-11-08 12:19 | ED.VIS.GI ---
History of Present Illness Chief Complaint: Abd Pain Informant: Patient - Abdominal Pain/Flank Pain Onset: Days - 4 Context: Gradual Onset Timing: Continuous Quality: Aching Location: Epigastric Current Severity: Moderate Maximum Severity: Moderate Worsened by: Food Relieved by: Nothing - Nausea/Vomiting/Emesis GI Symptom: Nausea, Vomiting Onset: Days - 4 Quality: - - feculent. Negative for: Blood streaks, Coffee ground, Hematemesis Severity: Severe - Diarrhea/Melena/Hematochezia GI Symptom: - - no BM in past 4-5 days Associated Symptoms: Negative for: Dysuria, Frequency, Hematuria, Urgency Narrative: Patient states she has had 2 bowel obstructions in the past, both were treated nonoperatively. She has had gradual onset of pain and vomiting and feels like a prior bowel obstruction. Majority of her pain is upper abdomen. Does not radiate into her back or into her chest. Trouble keeping down fluids. Prior similar symptoms: Yes - bowel obstruction - Past Medical History (1) Small bowel obstruction Status: Chronic (2) Anxiety Status: Chronic (3) HTN (hypertension) Status: Chronic (4) Heroin abuse Status: Chronic (5) Marijuana abuse Status: Chronic (6) Methamphetamine abuse Status: Chronic (7) Restless leg syndrome Status: Chronic (8) Cervical cancer Status: Resolved (9) Ovarian cancer Status: Resolved Past Medical History - Allergies and Home Meds Allergies/Adverse Reactions: Allergies No Known Allergies Allergy (Verified 11/08/19 11:37) Primary Care Physician: Jennifer Kaiser MD [Primary Care Provider] - Surgical History: cholecystectomy, hysterectomy Lives: Alone Smoking Status: Former smoker - Family History Maternal Family History: Reports: No pertinent history Paternal Family History: Reports: No pertinent history Review of Systems General: Reports: Malaise. Denies: Chills, Fever, Sweats Eyes: Denies: Visual changes - bilaterally, Diplopia ENT: Denies: Rhinorrhea, Sore throat Cardiovascular: Denies: Chest pain, Palpitations Respiratory: Denies: Dyspnea, Cough, Dyspnea on exertion Gastrointestinal: Reports: Abdominal pain, Nausea, Vomiting. Denies: Diarrhea, Melena, Hematochezia Genitourinary: Denies: Dysuria, Hematuria, Frequency Musculoskeletal: Reports: Back pain - chronic, stable. Denies: Neck pain, Swelling, Extremity Pain Skin: Denies: Rash, Wounds Neurological: Denies: Headache, Weakness, Numbness Physical Exam Vital Signs/Narrative: Vital Signs Temp Pulse Resp BP Pulse Ox 11/08/19 11:37 96.3 F L 98 18 104/81 H 100 Inital Vital Signs reviewed: Yes General: Well nourished, Well developed, No Acute Distress Head: Normocephalic, Atraumatic Eyes: Perrl, EOMI ENT: Moist mucous membranes, No rhinorrhea Neck: Supple, Nontender Cardiovascular: Regular rate, Regular rhythm, No murmurs Respiratory: No distress, CTA bilaterally, Chest nontender Abdomen: Soft, Nondistended, Tender - diffusely, Guarding - invol, w/ percussion, Hypoactive bowel sounds. Negative for: Rebound tenderness Back: Nontender, Normal Inspection Extremities: Nontender, No edema. Negative for: Calf Tenderness Skin: Normal color, No rash, No Trauma Neurological: Alert, Oriented x3, Cranial nerves II-XII grossly intact, Normal Strength, Normal Sensation Psychological: Normal affect, Normal Mood Diagnostic/Tx/Re-eval Impressions Abdomen/Pelvis CT 11/08/19 12:17 IMPRESSION: Findings in keeping with the small bowel obstruction in the mid ileal level where there is evidence of a several radiopacities most likely representing foreign bodies. These are unchanged as compared to prior study. The small bowel loop at that site is of increased thickness with increased markings in the surrounding peritoneum. Electronically Signed: Narendra Nolan, at 13:34 EST , Service support , 11/08/19 12:17 Abdomen/Pelvis W IV Cont ONLY [CT] Stat 11/08/19 15:30 Abdomen Single View (Portable) [RAD] Stat Laboratory Results 11/08/19 11/08/19 11/08/19 12:32 12:32 14:40 WBC 19.8 H RBC 5.24 Hgb 15.3 H Hct 46.3 MCV 88.4 MCH 29.2 MCHC 33.0 RDW Std Deviation 43.8 RDW Coeff of Romeo 13.4 Plt Count 550 H MPV 7.9 Immature Gran % (Auto) 0.800 Neut % (Auto) 79.7 H Lymph % (Auto) 13.0 L [place] % (Auto) 6.1 Eos % (Auto) 0.2 Baso % (Auto) 0.2 Absolute Neuts (auto) 15.8 H Absolute Lymphs (auto) 2.57 Nucleated RBC % 0 Sodium 134 L Potassium 3.8 Chloride 101 Carbon Dioxide 25.0 Anion Gap 8 BUN 16 Creatinine 1.20 H Estim Creat Clear Calc 37.15 Est GFR (MDRD) Af Amer 59 L Est GFR (MDRD) Non-Af 49 L BUN/Creatinine Ratio 13.3 Glucose 127 H Calcium 9.5 Total Bilirubin 0.90 AST 28 ALT 47 Alkaline Phosphatase 90 Total Protein 8.7 H Albumin 3.1 L Globulin 5.6 H Albumin/Globulin Ratio 0.6 L Lipase 68 L Urine Color Straw Urine Clarity Clear Urine pH 6.0 Ur Specific [place] 1.010 Urine Protein 30 H Urine Glucose (UA) Normal Urine Ketones Negative Urine Occult Blood 10 H Urine Nitrite Negative Urine Bilirubin 1 H Urine Urobilinogen 1 H Ur Leukocyte Esterase 25 H Urine RBC 0 SEEN Urine WBC 0-5 SEEN Ur Squamous Epith Cells 0 SEEN Urine Bacteria RARE Urine Mucus 0 SEEN - Medical Decision Making CT consistent with small bowel obstruction, consistent with. Clinical suspicion NG tube was placed, confirmatory film shows good placement. She was pretreated with Afrin and lidocaine jelly first to minimize discomfort. She was improved somewhat after IV fluids, Zofran, morphine. Discussed with hospitalist and Dr. Tijerina who saw the patient before for this, for further evaluation inpatient. ED Disposition - Plan for ED Patient: Disposition: Acute Care Hospital [facility] Diagnosis: Small bowel obstruction Referrals: Jennifer Kaiser MD [Primary Care Provider] -
[2019-11-08] MEDS: 0.9% Normal Saline 1,000 ML 1000 ML IV (12:42)
[2019-11-08] MEDS: Ondansetron 4 MG/2 ML Vial IV (12:42)
[2019-11-08] MEDS: Morphine 4 MG/ML Syringe IV (12:42)
[2019-11-08 12:46] LABS: Absolute Lymphocyte Count 2.57 X10^3/uL (0.83-4.51); Absolute Neutrophil Count 15.8 X10^3/uL (2.0-7.7); Basophil# 0.04 X10^3/uL; Basophil% 0.2 % (0-1); Eosinophil# 0.04 X10^3/uL; Eosinophils% 0.2 % (0-5); Hematocrit 46.3 % (37-47); Hemoglobin 15.3 g/dL (12.0-15.0); Lymphocyte # 2.57 X10^3/ul (4.0); Mean Corpuscular Hgb 29.2 pg (27.0-32.0); Mean Corpuscular Volume 88.4 fL (81-99); Mean Platelet Vol. 7.9 fl (6.2-12.0); Monocyte# 1.21 X10^3/uL; Monocyte% 6.1 % (0-10); NRBC Flagged by Analyzer 0 % (0-5); Neutrophil # 15.79 X10^3/uL (2.7-7.7); Neutrophil % 79.7 % (47-70); Platelet Count 550 K/mm3 (150-450); RBC Distribution Width CV 13.4 % (11.6-14.6); RBC Distribution Width SD 43.8 fl (35.1-43.9); Red Blood Count 5.24 M/mm3 (4.2-5.4); White Blood Count 19.8 K/mm3 (4.4-11.0)
[2019-11-08 13:01] LABS: ALB/GLOB Ratio 0.6 RATIO (0.9-2.4); AST(SGOT) 28 U/L (15-37); Alanine Aminotransfer ALT/SGPT 47 U/L (13-56); Albumin, Serum 3.1 g/dL (3.2-5.0); Alkaline Phosphatase 90 U/L (45-117); Anion Gap 8 (5-15); BUN 16 mg/dL (7-18); BUN/Creat Ratio 13.3 RATIO (10-20); Calcium,Total 9.5 mg/dL (8.5-10.1); Chloride 101 mmol/L (98-107); EST Glomerular Filtration Rate 49 mL/min (>60); Est Glom Filt Rate - Afr Amer 59 mL/min (>60); Estimated Creatinine Clearance 37.15 ml/min; Globulin 5.6 g/dL (2.2-4.2); Glucose 127 mg/dL (74-106); Lipase 68 U/L (73-393); Potassium 3.8 mmol/L (3.5-5.1); Protein, Total 8.7 g/dL (6.4-8.2); Sodium Level 134 mmol/L (136-145)
[2019-11-08 14:51] LABS: Mucous, Urine 0 SEEN /hpf (<or=2+); Red Blood Cells-Urine 0 SEEN /hpf (0-5); Squamous Epithelial Cells - UA 0 SEEN /hpf (5-10)
[2019-11-08 14:54] LABS: Color, Urine Straw (Yellow); Glucose, Dipstick Normal (Normal); Ketone-Dipstick Negative (Negative); Leukocyte Esterase-Dipstick 25 /ul (Negative); Nitrite-Dipstick Negative (Negative); Occult Blood-Urine 10 /ul (Negative); Protein-Dipstick 30 mg/dl (Negative); Urine Clarity Clear (Clear); Urine Urobilinogen 1 mg/dl (Normal)
[2019-11-08 15:04] LABS: Urine Bilirubin Dipstick 1 mg/dL (Negative)
[2019-11-08 15:06] LABS: Bacteria RARE /hpf (None Seen); White Blood Cells 0-5 SEEN /hpf (0-5)
[2019-11-08] MEDS: Oxymetazoline 0.05% 1 SPRAY SPRAY.BTL 2 SPRAY NASAL (15:26)
[2019-11-08] MEDS: Lidocaine 2% Jelly 1 APPLIC Tube 3 APPLIC TOPICAL (15:26)
--- NOTE | 2019-11-08 15:30 | RAD_ITS ---
STUDY: X-RAY - ABDOMEN/PELVIS REASON FOR EXAM: Female, 59 years old. NG TUBE PLACEMENT TECHNIQUE: Single AP view of the abdomen / pelvis. COMPARISON: None. FINDINGS: Nasogastric tube is seen. The tip is in the proximal stomach just distal to the gastroesophageal junction. Air-fluid levels are seen in the small bowel loops. Hiatal hernia. . RAD/Abdomen Single View (Portable) IMPRESSION: The tip of the nasogastric tube is in the proximal stomach just distal to the gastroesophageal junction. Electronically Signed: Narendra Nolan, at 15:48 EST , Service support ,
--- NOTE | 2019-11-08 15:44 | HP.PCM_ITS ---
History of Present Illness Date of Admission: 11/08/19 Chief Complaint: abdominal pain The patient is a 59 year old F with a past medical history as listed which includes recurrent small bowel obstruction. She has never needed surgery in the past for this. She was admitted through the ED on 11/08/2019 with a complaint of abdominal pain which started 2 days prior to admission. Pain was mainly in the upper part of her abdomen, was colicky in nature with no aggravating or relieving factors. She had associated emesis today which he states was very copious and foul-smelling. She admits to having fever and chills or any urinary symptoms. She says she is not passing gas she had a bowel movement. On admi ssion in the ED, vitals were significant for temperature of 96.3 Fahrenheit with blood pressure of 104/81 and pulse rate of 98 as well as respiratory rate of 18. CBC showed WBC of 19.8 but was otherwise unremarkable. Chemistry was significant for creatinine of 1.2 and sodium of 134. CT of the abdomen and pelvis done showed moderate sized hiatal hernia and dilated loops of small bowel with a nondistended colon consistent with a small bowel obstruction with a transition point in the mid ileal level. She has been admitted to be managed for small bowel obstruction. [] Past Medical History Past Medical History (Chronic Problems): Chronic Problems Methamphetamine abuse (Chronic) Heroin abuse (Chronic) Marijuana abuse (Chronic) Small bowel obstruction (Chronic) Anxiety (Chronic) HTN (hypertension) (Chronic) Restless leg syndrome (Chronic) Allergies No Known Allergies Allergy (Verified 11/08/19 11:37) Home Medications: Ambulatory Orders Medication Instructions Recorded Duloxetine HCl 120 mg PO DAILY 12/09/17 Gabapentin [Neurontin] 1,200 mg PO BIDCM 12/09/17 Gabapentin [Neurontin] 600 mg PO DAILY@1700 12/09/17 Loratadine 10 mg PO DAILY PRN 12/09/17 cycloBENZAPRine HCl [Flexeril] 10 mg PO BID PRN 12/09/17 Albuterol IH (ProAir) [Proair Hfa] 2 puff INHALATION Q4H PRN PRN 08/04/19 Buspirone HCl 20 mg PO TID 08/04/19 Lisinopril [Zestril] 20 mg PO DAILY 08/04/19 Meloxicam 15 mg PO DAILY 11/08/19 Surgical History: cholecystectomy, hysterectomy Psychiatric History: Anxiety [employer] History: cervical cancer, ovarian cancer Lives: Roommate Smoking Status: Former smoker Alcohol: None Drugs: None - *Family History Maternal History Items: No pertinent history Paternal History Items: No pertinent history Review of Systems Constitutional: Reports: Anorexia, Chills, Fever, Malaise, Weakness, Fatigue HEENT: Denies: Head Aches, Sinus Congestion, Sinus Drainage Cardiovascular: Denies: Chest Pain, Palpitations Respiratory: Denies: Cough, Shortness of breath at rest, Sputum production Gastrointestinal: Reports: Nausea, Vomiting. Denies: Abdominal Pain Genitourinary: Denies: Dysuria Musculoskeletal: Denies: Joint Pain, Joint Tenderness Skin: Denies: Rash, Wounds Neurological: Denies: Numbness, Tingling, Focal weakness Psychiatric: Denies: Anxiety, Depression, Homicidal Ideations, Suicidal Ideations Hematologic/ Lymphatic: Denies: Easy Bruising, Easy Bleeding VTE Information - Inpt Only VTE Present on Admission: No VTE Pharm Prophylaxis ordered?: Yes - Physical Exam Vitals/I&O's: Vital Signs Temp Pulse Resp BP Pulse Ox 96.3 F L 87 16 110/87 H 98 11/08/19 11:37 11/08/19 14:07 11/08/19 14:07 11/08/19 14:07 11/08/19 14:07 Oxygen Delivery Method Room Air Weight: 194 lb 0.108 oz Body Mass Index (BMI) 37.8 Intake and Output for Last 24 Hours 11/06/19 11/07/19 11/08/19 23:59 23:59 23:59 Intake Total 1000 / 1000 Balance 1000 / 1000 General: Alert, Oriented x3, Cooperative, - - anxious and tearful HEENT: Atraumatic, PERRLA, EOMI, Normocephalic Oral: Dry Mucosa Neck: Supple, No JVD, Negative Carotid Bruits Lungs: Clear to auscultation, Normal air movement, No rhonchi, No wheeze Cardiovascular: Regular rate, Regular Rhythm, Normal S1, Normal S2, No murmurs Abdomen: Bowel Sounds Present, Soft, - - mild epigastric tenderness, no guarding or rebound tenderness. Bowel sounds present mildly hyperactive. NG tube in place, draining scant bilious fluid. Extremities: No clubbing, No cyanosis, No edema, Capillary Refill Less than 3 Seconds Skin: No rashes, No breakdown Musculoskeletal: No Tenderness to Palpation of Joints or Extremities Lymphatic: No Cervical, Supraclavicular, or Inguinal Adenopathy Neurological: Cranial nerves II-XII grossly intact, Neuro grossly intact, Motor Exam 5/5 strength throughout Psych/Mental Status: Normal Affect, Appropriate, Alert and oriented to time, place, person, mood and affect Laboratory Results 11/08/19 12:32: WBC 19.8 H, RBC 5.24, Hgb 15.3 H, Hct 46.3, MCV 88.4, MCH 29.2, MCHC 33.0, RDW Std Deviation 43.8, RDW Coeff of Romeo 13.4, Plt Count 550 H, MPV 7.9, Immature Gran % (Auto) 0.800, Neut % (Auto) 79.7 H, Lymph % (Auto) 13.0 L, [place] % (Auto) 6.1, Eos % (Auto) 0.2, Baso % (Auto) 0.2, Absolute Neuts (auto) 15.8 H, Absolute Lymphs (auto) 2.57, Nucleated RBC % 0 11/08/19 12:32: Sodium 134 L, Potassium 3.8, Chloride 101, Carbon Dioxide 25.0, Anion Gap 8, BUN 16, Creatinine 1.20 H, Estim Creat Clear Calc 37.15, Est GFR (MDRD) Af Amer 59 L, Est GFR (MDRD) Non-Af 49 L, BUN/Creatinine Ratio 13.3, Glucose 127 H, Calcium 9.5, Total Bilirubin 0.90, AST 28, ALT 47, Alkaline Phosphatase 90, Total Protein 8.7 H, Albumin 3.1 L, Globulin 5.6 H, Albumin/Globulin Ratio 0.6 L, Lipase 68 L 11/08/19 14:40: Urine Color Straw, Urine Clarity Clear, Urine pH 6.0, Ur Specific [place] 1.010, Urine Protein 30 H, Urine Glucose (UA) Normal, Urine Ketones Negative, Urine Occult Blood 10 H, Urine Nitrite Negative, Urine Bilirubin 1 H, Urine Urobilinogen 1 H, Ur Leukocyte Esterase 25 H, Urine RBC 0 SEEN, Urine WBC 0-5 SEEN, Ur Squamous Epith Cells 0 SEEN, Urine Bacteria RARE, Urine Mucus 0 SEEN Diagnostic Data Abdomen/Pelvis CT 11/08/19 12:17 IMPRESSION: Findings in keeping with the small bowel obstruction in the mid ileal level where there is evidence of a several radiopacities most likely representing foreign bodies. These are unchanged as compared to prior study. The small bowel loop at that site is of increased thickness with increased markings in the surrounding peritoneum. Electronically Signed: Narendra Ovidio, at 13:34 EST , Service support , KUB X-Ray 11/08/19 15:30 IMPRESSION: The tip of the nasogastric tube is in the proximal stomach just distal to the gastroesophageal junction. Electronically Signed: Narendra Ovidio, at 15:48 EST , Service support , Assessment/Plan All Active Problems Cervical cancer (Resolved) Ovarian cancer (Resolved) 59-year-old female admitted with a complaint of abdominal pain. 1. Small bowel obstruction * Has history of hysterectomy and cholecystectomy. * She has had previous episodes of small bowel obstruction which resolved without surgery. * CT of the abdomen showed moderate sized hiatal hernia and dilated loops of small intestine with a nondistended colon consistent with small bowel obstruction with transition point to the mid ileo-level and 5 oval-shaped objects of increased attenuation at the level of the transition point with evidence of surrounding inflammatory changes in the mesentery. * WBC is elevated at 19.8. * Admit to [facility] with telemetry * Keep n.p.o. Hydrate with IV fluid normal saline at 150 cc/h. * NG tube inserted done in the ED. * Will consult general surgery-Dr. Tijerina informed by ED doctor. * IV toradol for pain * 2. Elevated Cr * Creatinine is 1.2 with a baseline of around 0.7. * Does not meet the criteria for ANNAMARIE as it is not 0.3 above the upper limit of normal. * Will hydrate with IV fluid normal saline and trend creatinine. * 3. Hypertension: On lisinopril. Will continue. 4. Depression: On buspirone and duloxetine. Will hold on account of currently being in.. DVT prophylaxis: Lovenox Code Status: Full code * Patient counseled extensively about different types of CODE STATUS including full code, DNR CCA and DNR CCA. Patient elects to be full code. Total [id number] time 17 minutes. Code Visit OBSV E&M: 98543 Initial observation care L3 Procedures: 63975 Advncd Care Plan 30 Min
--- NOTE | 2019-11-08 16:43 | RAD_ITS ---
STUDY: X-RAY - ABDOMEN/PELVIS REASON FOR EXAM: Female, 59 years old. NG PLACEMENT TECHNIQUE: KUB. COMPARISON: None. FINDINGS: Nasogastric tube terminates in the duodenum. Dilated small bowel loop in the left lower quadrant measures 4.3 cm in caliber. Cholecystectomy clips in the right upper quadrant. Soft tissues are otherwise unremarkable. No abnormal calcifications. RAD/Abdomen Single View IMPRESSION: 1. Nasogastric tube terminates in the duodenum. 2. Dilated small bowel loop in the left lower quadrant suspicious for bowel obstruction. Electronically Signed: Dalila Conti MD at 17:32 EST Tel , Service support ,
--- NOTE | 2019-11-08 16:49 | CON.PCM_ITS ---
- Consult Date of Consult: 11/08/19 - Reason for Consult Chief Complaint: abdominal pain History of Present Illness: Beth Gudino is a 59 y/o WF who presents with signs/symptoms of small bowel obstruction. Had previous episode with hospitalization in July, resolved with IV hydration, bowel rest and NG tube decompression. Also had admission about a week ago at [facility] for the same. She states that she was hospitalized for about 2 days. Has had vaginal hysterectomy and cholecystectomy in past States that she has had 4-5 day history of abdominal pain. She last had a bowel movement three days ago and last had flatus about the same. She is a poor historian and changes her dates often - she initially told me that she hadn't had a bowel movement in over a week. Has had chronic nausea, had one emesis prior to being seen today. Denies fevers/chills. Has had sweats. States that pain is severe, sharp and diffuse - all throughout abdomen - states that pain is 10 out of 10 on scale of 1-10. Patient with history of illicit drug abuse - she states that she last used meth about 3 weeks ago. She states that I am not a drug addict, I just use it when I get depressed. Evaluation in ED - patient with normal WBC 10.3k but with left shift of differ ential, vital signs are stable with normal temperature. CT scan was obtained with findings of bowel obstruction, transition point in distal ileum in pelvis, probably due to adhesions. Also with foreign body in lumen of small intestine. Past Medical History: Hypertension Chronic pain syndrome COPD Anxiety/depression disorder, panic disorder with agoraphobia, PTSD history of cervical cancer restless leg syndrome history of heroin use history of meth use ? Past Surgical History: Hysterectomy - vaginal Back injections Left shoulder knot removed as child Cholecystectomy Dental surgery - removal of teeth ? MEDICATIONS: lisinopril (ZESTRIL, PRINIVIL) 10 mg tablet meloxicam (MOBIC) 15 mg tablet gabapentin (NEURONTIN) 600 mg tablet?() cyclobenzaprine (FLEXERIL) 10 mg tablet busPIRone (BUSPAR) 10 mg tablet DULoxetine (CYMBALTA) 60 mg capsule triamcinolone acetonide (KENALOG) 0.1 % cream ketoconazole (NIZORAL) 2 % cream loratadine (CLARITIN) 10 mg tablet albuterol HFA (PROAIR HFA) 90 mcg/actuation inhaler hydrOXYzine HCl (ATARAX) 25 mg tablet ? ALLERGIES: No known drug allergies ? REVIEW OF SYSTEMS: General - denies fevers/chills, has sweats, complains of increased fatigue Cardiovascular ? denies chest pain Pulmonary ? denies shortness of breath, denies coughing up blood Gastrointestinal ? as per HPI, colonoscopy in February of this year - diverticulosis and hemorrhoidal disease Neurological ? has headaches, denies seizures Genitourinary ? denies blood in urine, denies burning with urination Hematological ? denies spontaneous/prolonged bleeding Skin ? denies nonhealing skin wounds Musculoskeletal ? has chronic back pain, spinal stenosis L4-5 MRI scan 2011 Endocrine ? denies diabetes, denies thyroid disease Psychological ? has depression, has panic anxiety, PTSD ? PHYSICAL EXAMINATION: Temp 97F BP 120/86 RR 16 HR 72 Wt: 191# Ht: 5'1 General ? WD/WN WF with abdominal pain but not in extremis - appears to be lying on gurney without writhing, alert and oriented Head ? Normocephalic. EOM intact with sclera clear. Mouth with mucus membranes moist. Neck - supple with no jugular venous distention noted. Trachea is midline. Lungs ? clear to auscultation. Normal breath sounds. No rales/rhonchi/wheezing noted. Heart ? normal heart sounds, regular. No rubs/clicks/murmurs noted. Abdomen ? soft, but with generalized tenderness, but no peritoneal signs, no bowel sounds noted. Obese - cannot determine if any masses or distension. Extremities ? no calf tenderness noted. No pitting edema noted. Skin ? Normal skin integrity. Neurological ? non focal Psych ? calm and appropriate IMPRESSION: small bowel obstruction DISCUSSION/PLAN: I have discussed the above with the patient. Admit to hospital - on hospitalist service. IV hydration overnight. Will repeat KUB in the am to determine if any contrast in colon. Keep NPO NG tube to low intermittent suction - to keep proximal bowel decompressed. If no improvement - may have to proceed to surgery for adhesiolysis.
[2019-11-08] MEDS: 0.9% Normal Saline 1,000 ML 150 ML IV (18:00)
[2019-11-08] MEDS: metroNIDAZOLE 500 MG/100 ML BAG 100 MG IV (18:02)
[2019-11-08] MEDS: Ketorolac 30 MG/ML Syringe IV (18:02)
[2019-11-08] MEDS: Ciprofloxacin 400 MG/200 ML BAG 200 MG IV (21:55)
[2019-11-09 02:19] VITALS: PULSE 80
[2019-11-09] MEDS: 0.9% Normal Saline 1,000 ML 150 ML IV ×2 (02:44→09:28)
[2019-11-09 03:15] VITALS: BP 140/90; PULSE 83; RESP 18; TEMP 36.8; O2SAT 99
[2019-11-09] MEDS: Ketorolac 30 MG/ML Syringe IV (03:20)
[2019-11-09] MEDS: metroNIDAZOLE 500 MG/100 ML BAG 100 MG IV ×2 (05:35→14:30)
--- NOTE | 2019-11-09 05:55 | RAD_ITS ---
STUDY: X-RAY - ABDOMEN/PELVIS REASON FOR EXAM: Female, 59 years old. Small bowel obstruction. TECHNIQUE: AP supine portable view. COMPARISON: 11/08/2019. FINDINGS: Normal visualized lung bases. NG tube tip is in the descending portion of the duodenum near the horizontal duodenum. Minimal small bowel gaseous dilatation. Gas is also present in the colon. No definite bowel obstruction. There is no demonstrated free abdominal air. The visualized liver, spleen and kidneys are grossly normal in size and morphology. Normal soft tissue structures. Moderate degenerative osteoarthrosis of the L5-S1 facet joints. RAD/Abdomen Single View (Portable) IMPRESSION: 1. Distal repositioning of NG tube, tip is now in the descending duodenum near the horizontal duodenum junction. 2. Mild small bowel gaseous dilatation with presence of gas in the colon. No definite bowel obstruction. 3. Nonvisualization of the small bowel air-fluid levels since this is supine positioning when compared to 11/08/2019. Electronically Signed: Emeterio Lee MD at 8:24 EST , Service support ,
[2019-11-09 06:13] LABS: Absolute Lymphocyte Count 2.02 X10^3/uL (0.83-4.51); Absolute Neutrophil Count 7.7 X10^3/uL (2.0-7.7); Basophil# 0.02 X10^3/uL; Basophil% 0.2 % (0-1); Eosinophil# 0.17 X10^3/uL; Eosinophils% 1.6 % (0-5); Hematocrit 37.4 % (37-47); Hemoglobin 11.9 g/dL (12.0-15.0); Lymphocyte # 2.02 X10^3/ul (4.0); Lymphocyte % 18.7 % (19-41); Mean Corp Hgb Conc 31.8 g/dL (32-36); Mean Corpuscular Hgb 29.1 pg (27.0-32.0); Mean Corpuscular Volume 91.4 fL (81-99); Monocyte# 0.87 X10^3/uL; NRBC Flagged by Analyzer 0 % (0-5); Neutrophil % 71.1 % (47-70); Platelet Count 349 K/mm3 (150-450); RBC Distribution Width CV 13.7 % (11.6-14.6); RBC Distribution Width SD 46.4 fl (35.1-43.9); Red Blood Count 4.09 M/mm3 (4.2-5.4); White Blood Count 10.8 K/mm3 (4.4-11.0)
[2019-11-09 06:40] LABS: Anion Gap 4 (5-15); BUN 21 mg/dL (7-18); Calcium,Total 8.1 mg/dL (8.5-10.1); Chloride 110 mmol/L (98-107); EST Glomerular Filtration Rate 91 mL/min (>60); Est Glom Filt Rate - Afr Amer 111 mL/min (>60); Estimated Creatinine Clearance 119.05 ml/min; Glucose 86 mg/dL (74-106); Potassium 3.6 mmol/L (3.5-5.1); Sodium Level 139 mmol/L (136-145)
[2019-11-09 07:45] VITALS: PULSE 78
[2019-11-09 08:03] VITALS: BP 122/78; PULSE 82; RESP 16; TEMP 36.4; O2SAT 98
--- NOTE | 2019-11-09 08:54 | PN_ITS ---
Subjective: Chief complaint: Follow-up after admission for small bowel obstruction. Patient seen and examined. No acute events overnight. Today, she mentioned that abdominal pain is getting better, no nausea or vomiting. She is on NG tube suction. She stated she had a bowel movement this morning around 3 AM. She has been passing flatus. Her vital signs are stable. - Physical Exam Vitals/I&O's: Vital Signs Temp Pulse Resp BP Pulse Ox 97.6 F L 82 16 122/78 H 98 11/09/19 08:03 11/09/19 08:03 11/09/19 08:03 11/09/19 08:03 11/09/19 08:03 Oxygen Delivery Method Room Air Weight: 187 lb 8 oz Body Mass Index (BMI) 36.8 Intake and Output for Last 24 Hours 11/07/19 11/08/19 11/09/19 23:59 23:59 23:59 Intake Total 1797.5 / 1797.5 1150.0 / 1150.0 Output Total 200 / 200 100 / 100 Balance 1597.5 / 1597.5 1050.0 / 1050.0 General: Alert, Oriented x3, Cooperative, No apparent distress HEENT: Atraumatic, PERRLA, EOMI, Normocephalic Oral: Moist Mucosa, No Gingival or Mucosal Lesions/ Ulcerations Neck: Supple, No JVD, Negative Carotid Bruits, Trachea Midline, Thyroid Normal Size and Texture Lungs: Clear to auscultation, Normal air movement, No rhonchi, No wheeze, No ral es Cardiovascular: Regular rate, Regular Rhythm, Normal S1, Normal S2, PMI Normal Abdomen: Soft, No Hepato-splenomegaly, Hypoactive Bowel Sounds, Distended, Tender - Minimal generalized tenderness. No guarding or rigidity. Extremities: No clubbing, No cyanosis, No edema Skin: No rashes, No breakdown Lymphatic: No Cervical, Supraclavicular, or Inguinal Adenopathy Neurological: Cranial nerves II-XII grossly intact, Motor Exam 5/5 strength throughout Psych/Mental Status: Appropriate, Flat Affect, Alert and oriented to time, place, person, mood and affect Laboratory Results 11/08/19 12:32: WBC 19.8 H, RBC 5.24, Hgb 15.3 H, Hct 46.3, MCV 88.4, MCH 29.2, MCHC 33.0, RDW Std Deviation 43.8, RDW Coeff of Romeo 13.4, Plt Count 550 H, MPV 7.9, Immature Gran % (Auto) 0.800, Neut % (Auto) 79.7 H, Lymph % (Auto) 13.0 L, [place] % (Auto) 6.1, Eos % (Auto) 0.2, Baso % (Auto) 0.2, Absolute Neuts (auto) 15.8 H, Absolute Lymphs (auto) 2.57, Nucleated RBC % 0 11/08/19 12:32: Sodium 134 L, Potassium 3.8, Chloride 101, Carbon Dioxide 25.0, Anion Gap 8, BUN 16, Creatinine 1.20 H, Estim Creat Clear Calc 37.15, Est GFR (MDRD) Af Amer 59 L, Est GFR (MDRD) Non-Af 49 L, BUN/Creatinine Ratio 13.3, Glucose 127 H, Calcium 9.5, Total Bilirubin 0.90, AST 28, ALT 47, Alkaline Phosphatase 90, Total Protein 8.7 H, Albumin 3.1 L, Globulin 5.6 H, Albumin/Globulin Ratio 0.6 L, Lipase 68 L 11/08/19 14:40: Urine Color Straw, Urine Clarity Clear, Urine pH 6.0, Ur Specific [place] 1.010, Urine Protein 30 H, Urine Glucose (UA) Normal, Urine Ketones Negative, Urine Occult Blood 10 H, Urine Nitrite Negative, Urine Bilirubin 1 H, Urine Urobilinogen 1 H, Ur Leukocyte Esterase 25 H, Urine RBC 0 SEEN, Urine WBC 0-5 SEEN, Ur Squamous Epith Cells 0 SEEN, Urine Bacteria RARE, Urine Mucus 0 SEEN 11/09/19 05:40: WBC 10.8, RBC 4.09 L, Hgb 11.9 L, Hct 37.4, MCV 91.4, MCH 29.1, MCHC 31.8 L, RDW Std Deviation 46.4 H, RDW Coeff of Romeo 13.7, Plt Count 349, MPV 8.0, Immature Gran % (Auto) 0.400, Neut % (Auto) 71.1 H, Lymph % (Auto) 18.7 L, [place] % (Auto) 8.0, Eos % (Auto) 1.6, Baso % (Auto) 0.2, Absolute Neuts (auto) 7.7, Absolute Lymphs (auto) 2.02, Nucleated RBC % 0 11/09/19 05:40: Sodium 139, Potassium 3.6, Chloride 110 H, Carbon Dioxide 25.0, Anion Gap 4 L, BUN 21 H, Creatinine 0.70, Estim Creat Clear Calc 119.05, Est GFR (MDRD) Af Amer 111, Est GFR (MDRD) Non-Af 91, BUN/Creatinine Ratio 30.0 H, Glucose 86, Calcium 8.1 L Clinical Impression(s) from Imaging Studies Abdomen/Pelvis CT 11/08/19 12:17 IMPRESSION: Findings in keeping with the small bowel obstruction in the mid ileal level where there is evidence of a several radiopacities most likely representing foreign bodies. These are unchanged as compared to prior study. The small bowel loop at that site is of increased thickness with increased markings in the surrounding peritoneum. Electronically Signed: Narendra Nolan, at 13:34 EST , Service support , KUB X-Ray 11/08/19 15:30 IMPRESSION: The tip of the nasogastric tube is in the proximal stomach just distal to the gastroesophageal junction. Electronically Signed: Narendra Nolan, at 15:48 EST , Service support , KUB X-Ray 11/08/19 16:43 IMPRESSION: 1. Nasogastric tube terminates in the duodenum. 2. Dilated small bowel loop in the left lower quadrant suspicious for bowel obstruction. Electronically Signed: Dalila Conti MD at 17:32 EST Tel , Service support , KUB X-Ray 11/09/19 05:55 IMPRESSION: 1. Distal repositioning of NG tube, tip is now in the descending duodenum near the horizontal duodenum junction. 2. Mild small bowel gaseous dilatation with presence of gas in the colon. No definite bowel obstruction. 3. Nonvisualization of the small bowel air-fluid levels since this is supine positioning when compared to 11/08/2019. Electronically Signed: Emeterio Lee MD at 8:24 EST , Service support , Current Medications Albuterol Sulfate (Ventolin Aerosols) 2.5 mg INHALATION Q4H PRN PRN PRN Reason: SOB &/OR WHEEZING Dextrose (D50w Syringe) 0 gm IV X1 PRN; Protocol PRN Reason: Hypoglycemia Enoxaparin Sodium (Lovenox) 40 mg SC DAILY [facility] Glucagon () 1 mg IM .X1 PRN PRN Reason: Hypoglycemia Sodium Chloride () 1,000 mls @ 150 mls/hr IV .Q6H40M [facility] Stop: 11/09/19 13:41 Last Infusion: 11/09/19 06:35 Dose: 150 mls/hr Documented by: Ciprofloxacin (Cipro) 400 mg in 200 mls @ 200 mls/hr IV Q12 [facility] Last Infusion: 11/08/19 22:57 Dose: Infused Documented by: Metronidazole (Flagyl) 500 mg in 100 mls @ 100 mls/hr IV Q8 [facility] Last Infusion: 11/09/19 06:35 Dose: Infused Documented by: Ketorolac Tromethamine (Toradol) 30 mg IV Q6H PRN PRN PRN Reason: Pain Score 1-10/10 Stop: 11/13/19 17:42 Last Admin: 11/09/19 03:20 Dose: 30 mg Documented by: Ondansetron HCl (Zofran) 4 mg IV Q8H PRN PRN PRN Reason: NAUSEA/VOMITING Sodium Chloride () 10 - 40 ml IV UD PRN PRN Reason: SALINE FLUSH Medical Necessity - Tobacco Use Smoking Status: Former smoker Tobacco Use: Cigarettes Assessment/Plan This is a 59 years old female patient presented to the emergency because of abdominal pain and she was found to have small bowel obstruction. #1 small bowel obstruction: In context of history of recurrent small bowel obstruction. Probably due to adhesions secondary to multiple previous surgeries. CT scan abdomen and pelvis revealed small bowel obstruction as well as increased thickness of the small bowel loops with increased markings in the surrounding peritoneum.. Patient is on NG tube suction, n.p.o., IV fluids and IV pain medications. She is on IV ciprofloxacin and Flagyl. Repeat routine blood work from today reviewed, leukocytosis resolved. Serum electrolytes are within normal limits. LFT and lipase was unremarkable. Abdomen is improving, patient passed gas and had 1 bowel movement. Her vital signs are stable. General surgery on the case. Plan to continue same treatment. #2 hypertension: Blood pressure stable, lisinopril on hold. #3 anxiety/depression: Duloxetine and buspirone held because of bowel obstruction. #4 DVT prophylaxis: Subcu Lovenox. This note was generated with [employer] dictation software. It may contain incorrect words, spelling, and punctuation that were not noted in checking the note before signing. Code Visit Inpatient E&M: 72957 Subs Hosp L2
[2019-11-09] MEDS: Ciprofloxacin 400 MG/200 ML BAG 200 MG IV (09:28)
--- NOTE | 2019-11-09 10:01 | DCINST_ITS ---
- Discharge Diagnoses Current Active Problems: Current Active and Chronic Problems Small bowel obstruction (Chronic) You will use the following diet at home:: Cardiac, Full liquid, Other - Full liquid diet, advance as tolerated. Your food should be the consistency of: Regular Discharge Activity: Return to Normal Activity Weight Bearing Status: Full weight bearing Call your doctor if you observe: Fever of 101 or Higher, Inability to have a bowel movement, Shortness of breath, Dizziness, Fainting spells, Chest pain, Uncontrolled pain Allergies/Adverse Reactions: Allergies No Known Allergies Allergy (Verified 11/08/19 11:37) Medications to take at Discharge Duloxetine HCl 120 mg PO DAILY 12/09/17 Gabapentin [Neurontin] 1,200 mg PO BIDCM 12/09/17 Gabapentin [Neurontin] 600 mg PO DAILY@1700 12/09/17 Loratadine 10 mg PO DAILY PRN 12/09/17 cycloBENZAPRine HCl [Flexeril] 10 mg PO BID PRN 12/09/17 Albuterol IH (ProAir) [Proair Hfa] 2 puff INHALATION Q4H PRN PRN 08/04/19 Buspirone HCl 20 mg PO TID 08/04/19 Lisinopril [Zestril] 20 mg PO DAILY 08/04/19 Meloxicam 15 mg PO DAILY 11/08/19 Primary Care Physician: Jennifer Kaiser MD [Primary Care Provider] - Please follow up with your Primary Care Physician in: 1-2 week. Test Results: Test results from this visit will be discussed in further detail at your follow- up appointment, if applicable.
--- NOTE | 2019-11-09 14:39 | DS.PCM_ITS ---
Discharge Date and Diagnosis Date of Admission: 11/08/19 Date of Discharge: 11/09/19 - Primary Discharge Diagnosis Small bowel obstruction secondary to adhesions. - Secondary Discharge Diagnosis Chronic Problems Methamphetamine abuse (Chronic) Heroin abuse (Chronic) Marijuana abuse (Chronic) Small bowel obstruction (Chronic) Anxiety (Chronic) HTN (hypertension) (Chronic) Cervical cancer (Chronic) Ovarian cancer (Chronic) Restless leg syndrome (Chronic) Hospital Course and Treatment Imaging Results: 11/09/19 05:55 KUB [Abdomen Single View (Portable)] [RAD] AM (NON MEDS) 11/09/19 14:00 KUB [Abd Inc Decub and/or Erect] [RAD] Urgent Clinical Impression(s) from Imaging Studies Abdomen/Pelvis CT 11/08/19 12:17 IMPRESSION: Findings in keeping with the small bowel obstruction in the mid ileal level where there is evidence of a several radiopacities most likely representing foreign bodies. These are unchanged as compared to prior study. The small bowel loop at that site is of increased thickness with increased markings in the surrounding peritoneum. Electronically Signed: Narendra Nolan, at 13:34 EST , Service support , KUB X-Ray 11/08/19 15:30 IMPRESSION: The tip of the nasogastric tube is in the proximal stomach just distal to the gastroesophageal junction. Electronically Signed: Narendra Nolan, at 15:48 EST , Service support , KUB X-Ray 11/08/19 16:43 IMPRESSION: 1. Nasogastric tube terminates in the duodenum. 2. Dilated small bowel loop in the left lower quadrant suspicious for bowel obstruction. Electronically Signed: Dalila Conti MD at 17:32 EST Tel , Service support , KUB X-Ray 11/09/19 05:55 IMPRESSION: 1. Distal repositioning of NG tube, tip is now in the descending duodenum near the horizontal duodenum junction. 2. Mild small bowel gaseous dilatation with presence of gas in the colon. No definite bowel obstruction. 3. Nonvisualization of the small bowel air-fluid levels since this is supine positioning when compared to 11/08/2019. Electronically Signed: Emeterio Lee MD at 8:24 EST , Service support , Dr. Tijerina, general surgery. Operations: None Procedures: None Summary of Care Provided: Patient seen and examined on the day of discharge and appeared to be stable to be discharged home. She denies any more abdominal pain. Denied nausea or vomiting. She had bowel movement at around 3 AM and she has been passing flatus. Her vital signs are stable. The patient is a 59 year old F patient presented to the emergency room because of abdominal pain with nausea and vomiting and she was found to have small bowel obstruction. CT scan abdomen and pelvis with IV contrast revealed findings consistent with small bowel obstruction in the mid ileal level. This patient had history of multiple abdominal surgeries as well as histories of recurrent small bowel obstruction and distal bowel obstruction attributed to adhesions. Her routine blood work was unremarkable. Her electrolytes were normal. General surgery consulted and recommended conservative treatment. NG tube was inserted and patient was kept on n.p.o., received IV fluids, IV pain medications and IV antiemetics. Serial KUBs performed. With NG tube suctioning, her symptoms improved and she was able to have a bowel movement and she has been passing gas. She denies any more of the pain. NG tube was taken out and patient did very well. She had no more abdominal pain, no nausea or vomiting. Patient discharged home in a stable and good condition, recommended to keep on full liquid diet and advance as tolerated, started back on her previous home medications without any changes, recommended from with PCP in 1 to 2 weeks. - Physical Exam Vitals/I&O's: Vital Signs Temp Pulse Resp BP Pulse Ox 97.6 F L 82 16 122/78 H 98 11/09/19 08:03 11/09/19 08:03 11/09/19 08:03 11/09/19 08:03 11/09/19 08:03 Oxygen Delivery Method Room Air Weight: 187 lb 8 oz Body Mass Index (BMI) 36.8 Intake and Output for Last 24 Hours 0111/08/19 11/09/19 23:59 23:59 23:59 Intake Total 1797.5 / 1797.5 2300.0 / 2300.0 Output Total 200 / 200 200 / 200 Balance 1597.5 / 1597.5 2100.0 / 2100.0 General: Alert, Oriented x3, Cooperative, No apparent distress HEENT: Atraumatic, PERRLA, EOMI, Normocephalic Oral: Moist Mucosa, No Gingival or Mucosal Lesions/ Ulcerations Neck: Supple, No JVD, Negative Carotid Bruits, Trachea Midline, Thyroid Normal Size and Texture Lungs: Clear to auscultation, Normal air movement, No rhonchi, No wheeze, No rales Cardiovascular: Regular rate, Regular Rhythm, Normal S1, Normal S2, PMI Normal Abdomen: Bowel Sounds Present, Soft, Non Tender, No Hepato-splenomegaly, Distended Extremities: No clubbing, No cyanosis, No edema Skin: No rashes, No breakdown Lymphatic: No Cervical, Supraclavicular, or Inguinal Adenopathy Neurological: Cranial nerves II-XII grossly intact, Neuro grossly intact Psych/Mental Status: Normal Affect, Appropriate Laboratory Results 11/08/19 14:40: Urine Color Straw, Urine Clarity Clear, Urine pH 6.0, Ur Specific [place] 1.010, Urine Protein 30 H, Urine Glucose (UA) Normal, Urine Ketones Negative, Urine Occult Blood 10 H, Urine Nitrite Negative, Urine Bilirubin 1 H, Urine Urobilinogen 1 H, Ur Leukocyte Esterase 25 H, Urine RBC 0 SEEN, Urine WBC 0-5 SEEN, Ur Squamous Epith Cells 0 SEEN, Urine Bacteria RARE, Urine Mucus 0 SEEN 11/09/19 05:40: WBC 10.8, RBC 4.09 L, Hgb 11.9 L, Hct 37.4, MCV 91.4, MCH 29.1, MCHC 31.8 L, RDW Std Deviation 46.4 H, RDW Coeff of Romeo 13.7, Plt Count 349, MPV 8.0, Immature Gran % (Auto) 0.400, Neut % (Auto) 71.1 H, Lymph % (Auto) 18.7 L, [place] % (Auto) 8.0, Eos % (Auto) 1.6, Baso % (Auto) 0.2, Absolute Neuts (auto) 7.7, Absolute Lymphs (auto) 2.02, Nucleated RBC % 0 11/09/19 05:40: Sodium 139, Potassium 3.6, Chloride 110 H, Carbon Dioxide 25.0, Anion Gap 4 L, BUN 21 H, Creatinine 0.70, Estim Creat Clear Calc 119.05, Est GFR (MDRD) Af Amer 111, Est GFR (MDRD) Non-Af 91, BUN/Creatinine Ratio 30.0 H, Glucose 86, Calcium 8.1 L Current Medications Albuterol Sulfate (Ventolin Aerosols) 2.5 mg INHALATION Q4H PRN PRN PRN Reason: SOB &/OR WHEEZING Dextrose (D50w Syringe) 0 gm IV X1 PRN; Protocol PRN Reason: Hypoglycemia Enoxaparin Sodium (Lovenox) 40 mg SC DAILY [facility] Last Admin: 11/09/19 09:31 Dose: Not Given Documented by: Glucagon () 1 mg IM .X1 PRN PRN Reason: Hypoglycemia Ciprofloxacin (Cipro) 400 mg in 200 mls @ 200 mls/hr IV Q12 [facility] Last Infusion: 11/09/19 11:20 Dose: Infused Documented by: Metronidazole (Flagyl) 500 mg in 100 mls @ 100 mls/hr IV Q8 [facility] Last Admin: 11/09/19 14:30 Dose: 100 mls/hr Documented by: Ketorolac Tromethamine (Toradol) 30 mg IV Q6H PRN PRN PRN Reason: Pain Score 1-10/10 Stop: 11/13/19 17:42 Last Admin: 11/09/19 03:20 Dose: 30 mg Documented by: Ondansetron HCl (Zofran) 4 mg IV Q8H PRN PRN PRN Reason: NAUSEA/VOMITING Sodium Chloride () 10 - 40 ml IV UD PRN PRN Reason: SALINE FLUSH Discharge Activity: Return to Normal Activity Weight Bearing Status: Full weight bearing Call your doctor if you observe: Fever of 101 or Higher, Inability to have a bowel movement, Shortness of breath, Dizziness, Fainting spells, Chest pain, Uncontrolled pain Home Medications: Medications to take at Discharge Duloxetine HCl 120 mg PO DAILY 12/09/17 Gabapentin [Neurontin] 1,200 mg PO BIDCM 12/09/17 Gabapentin [Neurontin] 600 mg PO DAILY@1700 02/13/18 Loratadine 10 mg PO DAILY PRN 12/09/17 cycloBENZAPRine HCl [Flexeril] 10 mg PO BID PRN 12/09/17 Albuterol IH (ProAir) [Proair Hfa] 2 puff INHALATION Q4H PRN PRN 08/04/19 Buspirone HCl 20 mg PO TID 08/04/19 Lisinopril [Zestril] 20 mg PO DAILY 08/04/19 Meloxicam 15 mg PO DAILY 11/08/19 Primary Care Physician: Jennifer Kaiser MD [Primary Care Provider] - Please follow up with your Primary Care Physician in: 1-2 week. Disposition: Home Minutes spent on discharge:: 25 Patient Condition:: Stable Medical Necessity - Tobacco Use Smoking Status: Former smoker Tobacco Use: Cigarettes Meaningful Use Info Meaningful Use Diagnoses (Choose all that apply): None applicable Code Visit OBSV E&M: 87288 Observation care discharge
[2019-11-09 14:40] VITALS: BP 118/86; PULSE 82; RESP 18; TEMP 36.7; O2SAT 97
== END 2019-11-09 15:30 | disposition home or self-care (01) ==
LOC: ED 15:47 → MS3 16:00
PROVIDERS: Admitting Provider Student in an Organized Health Care Education/Training Program; Emergency Provider Emergency Medicine; Family Provider Internal Medicine; PCP Internal Medicine; Referring Provider Student in an Organized Health Care Education/Training Program; Visit Provider Hospitalist
DX: K56.50 Intestinal adhesions [bands], unspecified as to partial versus complete obstruction (principal); I10 Essential (primary) hypertension; F41.9 Anxiety disorder, unspecified; G25.81 Restless legs syndrome; F15.10 Other stimulant abuse, uncomplicated; F32.9 Major depressive disorder, single episode, unspecified; R94.4 Abnormal results of kidney function studies; J44.9 Chronic obstructive pulmonary disease, unspecified; G89.4 Chronic pain syndrome; F40.01 Agoraphobia with panic disorder; F12.10 Cannabis abuse, uncomplicated; F11.10 Opioid abuse, uncomplicated; Z85.41 Personal history of malignant neoplasm of cervix uteri; Z85.43 Personal history of malignant neoplasm of ovary; Z79.899 Other long term (current) drug therapy; Z87.891 Personal history of nicotine dependence
CPT/HCPCS: 36415; 74018; 74177; 80048; 80053; 81001; 83690; 85025; 96361; 96365; 96366; 96367; 96375; 96376; 99218; 99285; J7030; Q9967; G0378; J0744; J2405

== ENCOUNTER → 2021-05-25 14:00 | Outpatient (CLI) | payer MEDICARE, SELFPAY ==
[2019-11-08 17:13] VITALS: BMI 36.8
[2021-05-25 14:52] LABS: Hematocrit 47.4 % (37-47); Hemoglobin 15.7 g/dL (12.0-15.0); Mean Corp Hgb Conc 33.1 g/dL (32-36); Mean Corpuscular Hgb 31.5 pg (27.0-32.0); Mean Platelet Vol. 8.1 fl (6.2-12.0); Platelet Count 285 K/mm3 (150-450); RBC Distribution Width CV 13.2 % (11.6-14.6); Red Blood Count 4.99 M/mm3 (4.2-5.4); White Blood Count 6.1 K/mm3 (4.4-11.0)
[2021-05-25 14:58] LABS: Color, Urine Yellow (Yellow); Glucose, Dipstick Normal (Normal); Ketone-Dipstick Negative (Negative); Leukocyte Esterase-Dipstick 100 /ul (Negative); Nitrite-Dipstick Negative (Negative); Occult Blood-Urine 25 /ul (Negative); Protein-Dipstick Negative (Negative); Urine Bilirubin Dipstick Negative (Negative); Urine Clarity Clear (Clear); Urine Urobilinogen Normal (Normal)
[2021-05-25 15:25] LABS: Hemoglobin A1c 4.9 % (3.8-5.6)
[2021-05-25 15:44] LABS: ALB/GLOB Ratio 0.8 RATIO (0.9-2.4); AST(SGOT) 125 U/L (15-37); Alanine Aminotransfer ALT/SGPT 153 U/L (13-56); Albumin, Serum 3.4 g/dL (3.2-5.0); Alkaline Phosphatase 71 U/L (45-117); Anion Gap 9 (5-15); BUN 14 mg/dL (7-18); BUN/Creat Ratio 17.8 RATIO (10-20); Calcium,Total 8.5 mg/dL (8.5-10.1); Chloride 105 mmol/L (98-107); Creatinine, Serum 0.79 mg/dL (0.55-1.02); EST Glomerular Filtration Rate 79 mL/min (>60); Est Glom Filt Rate - Afr Amer 96 mL/min (>60); Globulin 4.5 g/dL (2.2-4.2); Glucose 109 mg/dL (74-106); Potassium 3.7 mmol/L (3.5-5.1); Protein, Total 7.9 g/dL (6.4-8.2); Sodium Level 138 mmol/L (136-145); Thyroid Stim Hormone (TSH) 2.21 uIU/mL (0.358-3.74)
== END ==
PROVIDERS: PCP Internal Medicine; Referring Provider Psychiatry & Neurology Psychiatry; Visit Provider Psychiatry & Neurology Psychiatry
DX: F19.10 Other psychoactive substance abuse, uncomplicated (principal); R53.83 Other fatigue; E55.9 Vitamin D deficiency, unspecified; E78.2 Mixed hyperlipidemia; Z79.899 Other long term (current) drug therapy
CPT/HCPCS: 36415; 80053; 81002; 82140; 83036; 84443; 85027

== ENCOUNTER 2021-05-25 14:41 | Emergency (ER) | payer MEDICARE, MEDICAID, SELFPAY ==
[2019-11-08 17:13] VITALS: BMI 36.8
[2021-05-25 14:42] VITALS: BP 137/109; PULSE 95; RESP 20; TEMP 36.1; O2SAT 99; BMI 43.9
--- NOTE | 2021-05-25 16:07 | EDS_ITS ---
HPI History of Present Illness Chief Complaint: Foreign Body Informant: patient Occured/Mechanism Mechanism/Context: Yes other see comment below Comment: Accidental injury see below Onset/Context/Timing Onset: Weeks (3) Context: Sudden Onset Location: Right wrist Current Severity: Gone Maximum Severity: Mild Worsened by: Nothing in particular Relieved by: Nothing Associated Symptoms Associated Symptoms: Negative for Parasthesia, Weakness and Loss of Funtion Narrative Narrative: Patient states she accidentally fell onto a sewing pillow that had needles on it about 3 weeks ago, one of the needles penetrated into her right forearm/wrist dorsally and at the ulnar aspect, and trying to get it out she broke half of it off and the other half stayed inside. This is her first visit to someone to see about having it removed. She has had no issues with it except for the very occasional brief pain with certain movements in the affected area. She has had no infection, redness, or constant discomfort or anything else that limits her daily use of her right hand. [id number]. Tetanus Immunization: >10 years [facility] Medical History (Updated 05/26/21 @ 00:[address] Edison Trinh MD) Anxiety Cervical cancer Heroin abuse HTN (hypertension) Marijuana abuse Methamphetamine abuse Ovarian cancer Restless leg syndrome Small bowel obstruction Home Medications cyclobenzaprine 10 mg PO BID PRN 12/09/17 [History Last Taken 11/07/19] duloxetine 120 mg PO DAILY 12/09/17 [History Last Taken 11/07/19] gabapentin 1,200 mg PO BIDCM 12/09/17 [History Last Taken 11/07/19] gabapentin 600 mg PO DAILY@1700 12/09/17 [History Last Taken 11/07/19] loratadine 10 mg PO DAILY PRN 12/09/17 [History Last Taken 11/07/19] albuterol sulfate 2 puff INHALATION Q4H PRN PRN 08/04/19 [History Last Taken 11/07/19] buspirone 20 mg PO TID 08/04/19 [History Last Taken 11/07/19] lisinopril 20 mg PO DAILY 08/04/19 [History Last Taken 11/07/19] meloxicam 15 mg PO DAILY 11/08/19 [History Last Taken 11/07/19] Allergy/AdvReac Type Severity Reaction Status Date / Time No Known Allergies Allergy Verified 05/25/21 14:44 Social History Smoking Status: Former smoker ROS ROS ED Constitutional Constitutional ED: Denies chills or fever(s) Musculoskeletal Musculoskeletal: Reports extremity pain; Denies neck pain Integumentary Denies Abrasions, rash or wounds Neurologic Neurologic: Denies paresthesias or weakness EXAM Physical Exam Const Vital Signs: 05/25/21 14:42 Temperature 97 F L Temperature Source Temporal Pulse Rate 95 Respiratory Rate 20 H Blood Pressure 137/109 H Blood Pressure Mean 118 Pulse Ox 99 Oxygen Delivery Method Room Air Positive well nourished and well developed General Appearance ED: well developed and NAD Neck full ROM and supple Back/Spine normal ROM and normal to inspection Extremity normal to inspection and full ROM Extremity Narrative: Normal inspection right wrist. No limited range of motion. No tenderness. I am unable to palpate any foreign body where the patient indicates it should be. The skin is normal. Neuro oriented x3, no focal motor deficits and no sensory deficits noted Sensorium / Orientation: alert Psych mental status grossly normal and thought process normal Skin no wounds Skin Narrative: Normal appearance right upper extremity Rashes: no rashes MDM MDM MDM Narrative Medical decision making narrative: I discussed with the patient, given the benign exam and the lack of symptoms I think it would be reasonable to start with an x-ray to see if it is still there. After she was amenable to this. I advised that going after this in the emergency department when it is not bother ing her likely has more risks than potential benefit. She was in agreement. After the x-ray, I discussed with her discharging her with orthopedic referral in case she decided to have it taken out. However she apparently changed her mind after our discussion and decided to leave before the x-ray was obtained, prior to her discharge. Discharge Plan Triage Chief Complaint: Foreign Body ED Provider: Edison Trinh Dx/Rx/DC Orders Clinical Impression: Foreign body in right forearm Instructions: ED Foreign Body Soft Tissue Prescriptions: No Action cyclobenzaprine 10 MG tablet 10 mg PO BID PRN (Reason: Muscle Spasm) RF: 0 gabapentin 600 MG tablet 1,200 mg PO BIDCM RF: 0 gabapentin 600 MG tablet 600 mg PO DAILY@1700 RF: 0 loratadine 10 MG tablet 10 mg PO DAILY PRN (Reason: Allergies) RF: 0 duloxetine 60 MG Capsule.Dr 120 mg PO DAILY RF: 0 buspirone 10 MG tablet 20 mg PO TID RF: 0 lisinopril 10 MG tablet 20 mg PO DAILY RF: 0 albuterol sulfate 1 PUFF inhaler 2 puff inhalation Q4H PRN PRN (Reason: Sob &/Or Wheezing) RF: 0 meloxicam 15 MG tablet 15 mg PO DAILY RF: 0 Primary Care Provider: Jennifer Kaiser Referrals: Jennifer Kaiser MD [Primary Care Provider] - Disposition Disposition: Home, Self Care Discharge Date/Time: 05/25/21 16:09
--- NOTE | 2021-05-25 16:09 | ED.RN ---
Pt walks up to the nursing station and states leonard been waiting way too long, im just going to go. Pt notified that radiology will be coming to her room shortly for the xray and she still declines to stay.
== END 2021-05-25 16:09 | disposition home or self-care (01) ==
PROVIDERS: Emergency Provider Emergency Medicine; PCP Internal Medicine
DX: S50.851A Superficial foreign body of right forearm, initial encounter (principal); F19.10 Other psychoactive substance abuse, uncomplicated; R53.83 Other fatigue; E55.9 Vitamin D deficiency, unspecified; E78.2 Mixed hyperlipidemia; Z79.899 Other long term (current) drug therapy; W27.3XXA Contact with needle (sewing), initial encounter; Z87.891 Personal history of nicotine dependence
CPT/HCPCS: 36415; 80053; 81002; 82140; 83036; 84443; 85027; 99282

== ENCOUNTER 2022-06-16 20:44 | Emergency (ER) | payer MEDICARE, MEDICAID, SELFPAY ==
[2022-06-16 20:45] VITALS: BP 157/112; PULSE 82; RESP 14; TEMP 36.5; O2SAT 98; BMI 44.4
--- NOTE | 2022-06-16 20:53 | CT_ITS ---
STUDY: CT ABDOMEN AND PELVIS WITHOUT CONTRAST REASON FOR EXAM: Female, 62 years old. left flank pain RADIATION DOSAGE (If Supplied By Facility): CTDIvol = ( 21.69 ) mGy, DLP = ( 1127.23 ) mGycm TECHNIQUE: Transaxial images were obtained from the dome of the diaphragm to the symphysis pubis without oral contrast, and without intravenous contrast. Sagittal and coronal images were reconstructed. Individualized dose optimization techniques were used for this CT. COMPARISON: 11/08/2019 FINDINGS: The visualized lung bases are unremarkable. The visualized portions of the heart are within normal limits. Normal liver. There are surgical clips in the gallbladder fossa consistent with a prior cholecystectomy. Normal spleen. Normal pancreas. Normal bilateral adrenal glands. Normal right kidney. 2 mm obstructing stone of the left ureter most junction with mild ureteral dilatation and hydronephrosis. Moderate sized hiatal hernia. Diverticulum of the third portion the duodenum. There are multiple colonic diverticula consistent with diverticulosis. The appendix is visualized and appears normal. Normal abdominal aorta. Normal inferior vena cava. Normal retroperitoneum. Normal urinary bladder. Normal abdominal wall. Normal osseous structures. CT/Abdomen/Pelvis without Cont IMPRESSION: 2 mm obstructing stone at the left ureterovesical junction with mild ureteral dilatation and hydronephrosis. Electronically Signed: Jorge Garner MD at 21:35 EDT ,
--- NOTE | 2022-06-16 20:55 | EDS_ITS ---
HPI History of Present Illness Chief Complaint: Flank Pain Detail of Chief Complaint: Left flank pain that started 2 weeks ago Informant: patient Narrative Narrative: Patient presents with left flank pain that started 2 weeks ago and she is been having off-and-on pain. Today the pain became severe. She describes it radiating down to the front of the abdomen and towards her vagina. She is never had pain like this before. She rates it a 10 out of 10. She denies nausea or vomiting. She does describe some dysuria and frequency and urinating small amounts. No history of kidney stones. Prior similar symptoms: No PFSH PFSH Medical History (Updated 06/16/22 @ 22:[address] Mary Paz, DO) Anxiety Cervical cancer Heroin abuse HTN (hypertension) Marijuana abuse Methamphetamine abuse Ovarian cancer Restless leg syndrome Small bowel obstruction Home Medications cyclobenzaprine 10 mg tablet 10 mg PO BID PRN Muscle Spasm 12/09/17 [History Last Taken 11/07/19] duloxetine 60 mg capsule,delayed release 120 mg PO DAILY mental health 12/09/17 [History Last Taken 11/07/19] gabapentin 600 mg tablet 1,200 mg PO BIDCM nerve pain 12/09/17 [History Last Taken 11/07/19] gabapentin 600 mg tablet 600 mg PO DAILY@1700 nerve pain 12/09/17 [History Last Taken 11/07/19] loratadine 10 mg tablet 10 mg PO DAILY PRN Allergies 12/09/17 [History Last Taken 11/07/19] albuterol sulfate 90 mcg/actuation aerosol inhaler 2 puff inhalation Q4H PRN PRN Sob &/Or Wheezing 08/04/19 [History Last Taken 11/07/19] buspirone 10 mg tablet 20 mg PO TID mental health 08/04/19 [History Last Taken 11/07/19] lisinopril 10 mg tablet 20 mg PO DAILY blood pressure 08/04/19 [History Last Taken 11/07/19] meloxicam 15 mg tablet 15 mg PO DAILY inflammation 11/08/19 [History Last Taken 11/07/19] hydrocodone-acetaminophen 5-325mg 5mg-325mg 1 tab PO Q4H PRN PRN Pain 2 days #10 TABLETS 06/16/22 [Rx Last Taken Unknown] naproxen 500 mg tablet 500 mg PO BID #14 tabs 06/16/22 [Rx Last Taken Unknown] sulfamethoxazole 800 mg-trimethoprim 160 mg tablet 1 tab PO BID #14 TABLETS 06/16/22 [Rx Last Taken Unknown] Allergy/AdvReac Type Severity Reaction Status Date / Time No Known Allergies Allergy Verified 06/16/22 20:48 Social History Smoking Status: Former smoker ROS ROS ED Review of Systems ROS Unobtainable: other Constitutional Constitutional ED: Reports lethargy; Denies chills, fever(s), sweats or weight loss Eyes Eyes: Denies blurry vision, change in vision or diplopia ENT ENT ED: Denies rhinorrhea or sore throat Cardiovascular Cardiovascular: Denies chest pain, orthopnea or racing heartbeat Respiratory/Chest Respiratory/Chest: Denies cough, dyspnea, dyspnea on exertion, orthopnea or sputum Gastrointestinal Gastrointestinal: Reports abdominal pain; Denies diarrhea, nausea or vomiting Genitourinary Genitourinary ED: Denies dysuria, hematuria or urinary frequency Musculoskeletal Musculoskeletal: Reports back pain; Denies arthralgias, myalgias or neck pain Integumentary Denies abscess, Abrasions or rash Neurologic Neurologic: Denies headache(s) or weakness Psychiatric Psychiatric: Denies anxiety, depression or suicidal thoughts Endocrine Endocrinology: Denies polydipsia, polyphagia or polyuria Hematologic/Lymphatic Hematologic/Lymphatic: Denies easy bleeding, easy bruising or lymphadenopathy Allergic/Immunologic Allergic/Immunologic ED: Denies mouth swelling, tongue swelling or urticaria EXAM Physical Exam Const Vital Signs: 06/16/22 20:45 06/16/22 21:12 Temperature 97.7 F L Temperature Source Temporal Pulse Rate 82 Respiratory Rate 14 Respiratory Effort Normal Non-Labored Blood Pressure 157/112 H Blood Pressure Mean 127 Pulse Ox 98 Oxygen Delivery Method Room Air Positive well nourished and well developed General Appearance ED: well developed and NAD HEENT Reports TM's clear and moist mucous membranes normocephalic and atraumatic; Negative for trauma or tenderness Tympanic Membrane ED: Yes TM's clear Eyes PERRL and EOMs intact bilaterally General Eye ED: Negative for pale conjunctiva or scleral icterus Neck no lymphadenopathy, supple and no JVD General: Negative for tenderness Chest Wall inspection of chest normal and palpation of chest normal Chest: Negative for tenderness Resp normal respiratory effort and clear to auscultation bilaterally Effort and Inspection: Negative for respiratory distress or pain with movement Auscultation: Negative for rhonchi, wheezes or diminished lung sounds Cardio regular rate, regular rhythm, S1 normal heart sound, S2 normal heart sound and no murmurs Peripheral Pulses: pulses 2+ throughout GI normal to inspection, nondistended, normoactive bowel sounds, soft to palpation, non-distended and no masses GI Narrative: Mild tenderness over left lower quadrant some guarding. She has CVA tenderness on the left. No rebound, rigidity, or peritoneal signs. Back/Spine no thoracic nor lumbar tenderness Extremity normal to inspection General Extremety ED: Negative for edema General Extremity: Negative for edema Neuro oriented x3, CN's II-XII intact bilaterally, no sensory deficits noted and gait normal Sensorium / Orientation: awake, alert, oriented to person, oriented to place and oriented to time Motor Exam: strength 5/5 throughout and strength abnormal Psych mental status grossly normal Skin no rashes or lesions noted and no wounds MDM MDM MDM Narrative Medical decision making narrative: IV line established on arrival. Patient was medicated Toradol, morphine, and Zofran. Patient had good pain relief with that. Lab work-up unremarkable. Urinalysis was positive for 500 excite esterase as well as 25-50 WBCs and +1 bacteria. Urine culture was sent. Patient was started on Bactrim p.o. Patient had a CT scan of the abdomen pelvis without contrast that showed a 2 mm left UVJ stone with mild ureteral dilatation and hydronephrosis. At this point the patient is resting comfortably. She will be given urine strainers as well as a prescription for Bactrim and [place]. Patient advised to return if fever, vomiting, worsening pain, or condition worsen anyway. Lab Data Attestation: I reviewed the patient's lab results. Labs: Laboratory Results - last 24 hr 06/16/22 06/16/22 06/16/22 21:07 21:07 21:44 WBC 9.3 RBC 4.81 Hgb 15.3 H Hct 45.0 MCV 93.6 MCH 31.8 MCHC 34.0 RDW Std Deviation 45.8 H RDW Coeff of [place] 13.3 Plt Count 277 MPV 8.2 Immature Gran % (Auto) 0.300 Neut % (Auto) 58.5 Lymph % (Auto) 27.6 [place] % (Auto) 9.3 Eos % (Auto) 3.9 Baso % (Auto) 0.4 Absolute Neuts (auto) 5.5 Absolute Lymphs (auto) 2.57 Nucleated RBC % 0 Sodium 136 Potassium 4.2 Chloride 106 Carbon Dioxide 26.0 Anion Gap 4 L BUN 16 Creatinine 1.05 H Estim Creat Clear Calc 40.93 Est GFR (MDRD) Af Amer 69 Est GFR (MDRD) Non-Af 57 L BUN/Creatinine Ratio 15.2 Glucose 84 Calcium 8.9 Urine Color Yellow Urine Clarity Sl. Cloudy Urine pH 5.0 Ur Specific [place] 1.025 Urine Protein 100 H Urine Glucose (UA) Normal Urine Ketones 5 H Urine Occult Blood 150 H Urine Nitrite Negative Urine Bilirubin 1 H Urine Urobilinogen 1 H Ur Leukocyte Esterase 500 H Urine RBC 10-25 SEEN Urine WBC 25-50 SEEN Ur Squamous Epith Cells 5-10 SEEN Urine Bacteria 1+ Urine Mucus 0 SEEN Radiography Diagnostic Testing: Clinical Impression(s) from Imaging Studies Abdomen/Pelvis CT 06/16/22 20:53 IMPRESSION: 2 mm obstructing stone at the left ureterovesical junction with mild ureteral dilatation and hydronephrosis. Electronically Signed: Jorge Garner MD at 21:35 EDT , Discharge Plan Triage Chief Complaint: Flank Pain ED Provider: Mary Paz Dx/Rx/DC Orders Clinical Impression: Urolithiasis, UTI (urinary tract infection) Instructions: ED Cystitis Female Adult, ED Kidney Stone w/ Colic Prescriptions: New hydrocodone-acetaminophen [hydrocodone-acetaminophen] 1 TABLET tablet 1 tab PO Q4H PRN PRN (Reason: Pain) 2 Days Qty: 10 0RF sulfamethoxazole-trimethoprim [sulfamethoxazole-trimethoprim] 1 TABLET tablet 1 tab PO BID Qty: 14 0RF naproxen 500 MG tablet 500 mg PO BID Qty: 14 0RF No Action cyclobenzaprine 10 MG tablet 10 mg PO BID PRN (Reason: Muscle Spasm) gabapentin 600 MG tablet 1,200 mg PO BIDCM gabapentin 600 MG tablet 600 mg PO DAILY@1700 loratadine 10 MG tablet 10 mg PO DAILY PRN (Reason: Allergies) duloxetine 60 MG capsule,delayed release(DR/EC) 120 mg PO DAILY buspirone 10 MG tablet 20 mg PO TID lisinopril 10 MG tablet 20 mg PO DAILY albuterol sulfate 1 PUFF inhaler 2 puff inhalation Q4H PRN PRN (Reason: Sob &/Or Wheezing) meloxicam 15 MG tablet 15 mg PO DAILY Primary Care Provider: Jennifer Kaiser Referrals: Andres Lunsford MD [Med Staff - Active Staff] - 3-5 Days Jennifer Kaiser MD [Primary Care Provider] - Disposition Disposition: Home, Self Care
[2022-06-16] MEDS: Ondansetron 4 MG/2 ML Vial IV (21:03)
[2022-06-16] MEDS: Morphine 4 MG/ML Syringe IV (21:03)
[2022-06-16] MEDS: Ketorolac 15 MG/ML Vial IV (21:04)
[2022-06-16] MEDS: 0.9% Normal Saline 1,000 ML 150 ML IV (21:14)
[2022-06-16 21:15] LABS: Absolute Lymphocyte Count 2.57 X10^3/uL (0.83-4.51); Absolute Neutrophil Count 5.5 X10^3/uL (2.0-7.7); Basophil# 0.04 X10^3/uL; Basophil% 0.4 % (0-1); Eosinophil# 0.36 X10^3/uL; Eosinophils% 3.9 % (0-5); Hemoglobin 15.3 g/dL (12.0-15.0); Lymphocyte # 2.57 X10^3/ul (0.83-4.51); Lymphocyte % 27.6 % (19-41); Mean Corpuscular Hgb 31.8 pg (27.0-32.0); Mean Corpuscular Volume 93.6 fL (81-99); Mean Platelet Vol. 8.2 fl (6.2-12.0); Monocyte# 0.87 X10^3/uL; Monocyte% 9.3 % (0-10); NRBC Flagged by Analyzer 0 % (0-5); Neutrophil # 5.45 X10^3/uL (2.7-7.7); Neutrophil % 58.5 % (47-70); Platelet Count 277 K/mm3 (150-450); RBC Distribution Width CV 13.3 % (11.6-14.6); RBC Distribution Width SD 45.8 fl (35.1-43.9); Red Blood Count 4.81 M/mm3 (4.2-5.4); White Blood Count 9.3 K/mm3 (4.4-11.0)
[2022-06-16 21:28] LABS: Anion Gap 4 (5-15); BUN 16 mg/dL (7-18); BUN/Creat Ratio 15.2 RATIO (10-20); Calcium,Total 8.9 mg/dL (8.5-10.1); Chloride 106 mmol/L (98-107); Creatinine, Serum 1.05 mg/dL (0.55-1.02); EST Glomerular Filtration Rate 57 mL/min (>60); Est Glom Filt Rate - Afr Amer 69 mL/min (>60); Estimated Creatinine Clearance 40.93 ml/min; Glucose 84 mg/dL (74-106); Potassium 4.2 mmol/L (3.5-5.1); Sodium Level 136 mmol/L (136-145)
[2022-06-16 21:48] LABS: Mucous, Urine 0 SEEN /hpf (<or=2+)
[2022-06-16 21:50] LABS: Color, Urine Yellow (Yellow); Glucose, Dipstick Normal (Normal); Ketone-Dipstick 5 mg/dl (Negative); Leukocyte Esterase-Dipstick 500 /ul (Negative); Nitrite-Dipstick Negative (Negative); Occult Blood-Urine 150 /ul (Negative); Protein-Dipstick 100 mg/dl (Negative); Specific Gravity, Urine 1.025 (1.002-1.030); Urine Clarity Sl. Cloudy (Clear); Urine Urobilinogen 1 mg/dl (Normal)
[2022-06-16 21:55] LABS: Urine Bilirubin Dipstick 1 mg/dL (Negative)
[2022-06-16 21:56] LABS: Red Blood Cells-Urine 10-25 SEEN /hpf (0-5); White Blood Cells 25-50 SEEN /hpf (0-5)
[2022-06-16 21:57] LABS: Bacteria 1+ /hpf (None Seen); Squamous Epithelial Cells - UA 5-10 SEEN /hpf (5-10)
[2022-06-16] MEDS: Smz/Tmp Ds Tablet 1 TABLET PO (22:10)
== END 2022-06-16 22:43 | disposition home or self-care (01) ==
PROVIDERS: Emergency Provider Emergency Medicine; PCP Internal Medicine; Visit Provider Emergency Medicine
DX: N13.6 Pyonephrosis (principal); I10 Essential (primary) hypertension; Z79.899 Other long term (current) drug therapy; Z87.891 Personal history of nicotine dependence
CPT/HCPCS: 74176; 80048; 81001; 85025; 87086; 87088; 96361; 96374; 96375; 99284; J7030; A4216; J2405